=== PATIENT | female | born 1955 | race Caucasian/White ===

== ENCOUNTER 2020-08-12 16:27 | Inpatient (IN) ==
[2020-08-12] MEDS ORDERED: SODIUM CHLORIDE 0.9% 1000ML 2,000 ML IV ONE (16:44)
[2020-08-12] MEDS ORDERED: PANTOprazole 40 MG in SYRINGE 0 ML IV ONE (16:44)
--- NOTE | 2020-08-12 16:50 | Emergency Department Note ---
Impression & Plan Acute upper GI bleed, Lactic acidosis, Acute blood loss anemia, Hypotension, Syncope ED Provider Note NAME: DOMINGO JEFFREY AGE: 64 SEX: F ARRIVES VIA: Walk-In INFORMANT: Patient, ED PROVIDER(S): Pedro Dowling MD CHIEF COMPLAINT: Syncope PLAN: Disposition: Admit MEDICAL DECISION MAKING: The patient is a pleasant 64-year-old woman who presents emergency department coming by her with concern for recurrent syncopal episodes in the set ting of developing black diarrhea today with symptoms of abdominal pain. They deny any regular history of alcohol use, NSAID use, history of peptic ulcer or similar symptoms in the past. Otherwise she has been feeling healthy prior to today in the 90 fevers, chills, cough, congestion, urinary symptoms. Denies taking any blood thinners. She does report she takes 'natural' supplements but denies taking any iron. On arrival the patient is ill-appearing, tachycardic in the 120s and hypotensive 60s/50s, afebrile with normal O2 saturation. She appears clinically dry and pale. She has generalized abdominal discomfort without discrete tenderness. Rectal exam demonstrates gross melena/Hemoccult positive. Given suspicion for upper GI bleed and need for transfusion the patient was consented on arrival for blood transfusion to which she agreed if it would be required. EKG without overt acute ischemia. CXR negative for acute cardiopulmonary process. Chest x-ray negative for acute cardiopulmonary process or free air. The patient was treated with aggressive IV fluid hydration with 2 L normal saline with pressure bag and had tenuous blood pressures up until completion of initial resuscitation. WBC 18K, nonspecific and likely reactive given patient denies any infectious symptoms preceding her melena. H/H 9.5/28.5 without recent values for comparison however given the patient denies any known history of anemia suspect likely reflects acute drop in H/H given her hypotension and moderate pallor. INR within normal limits. Chemistry with bicarb of 19 and normal anion gap. However initial lactate was elevated at 4.2. BUN is elevated at 69 consistent with suspicion for upper GI bleed. LFTs are unremarkable. Troponin 0.019, within normal limits. Lipase is not elevated. UA without convincing evidence of infection. COVID-[address] Abdomen and pelvis performed and did not demonstrate acute process. Moreover no evidence of cirrhosis. Rectal exam did demonstrate gross melena/Hemoccult positive and so given concern for hypotension related to acute hemorrhage decision was made to transfuse 1 unit PRBC. I discussed the case with GI on-call for Dr. Gustafson who agrees with transfusion of 1 unit PRBCs as well as IV Protonix and drip. Additionally recommends IV erythromycin. Will monitor for hemodynamic stability and likely proceed with endoscopy tonight. Case was also reviewed with Dr. Adams, ICU park warden as well as Shannan Parisi PAC with Dr. [facility], who will evaluate the patient for admission. Triage Nursing notes reviewed and agree them. Prior medical records reviewed Vital Signs: reviewed and remarkable for hypotension and tachycardia. Differential diagnosis: Diverticulosis, AVM, coagulopathy, colitis, inflammatory bowel disease, malignancy, Joy-Reed tear, esophagitis, peptic ulcer disease, variceal bleed, gastritis, epistaxis, fissure, hemorrhoids, as well as other pathologies. ER treatment provided: See below. Diagnostics interpreted by me: ECG: Sinus tachycardia, 116 bpm, no ectopy, no overt ST elevation or depression, QTC 480, QRS 76. Cardiac Monitoring: An order for continuous cardiac monitoring was placed and demonstrated Sinus tachycardia, 116 bpm, no ectopy. Laboratory studies: See below Imaging studies: See below Consultation(s): Dr. Gustafson, GI on-call. Shannan Parisi PAC with Dr. [facility], who will evaluate the patient for admission. Dr. Adams ICU park warden. HPI: The patient is a pleasant 64-year-old woman who presents emergency department coming by her with concern for recurrent syncopal episodes in the setting of developing black diarrhea today with symptoms of abdominal pain. They deny any regular history of alcohol use, NSAID use, history of peptic ulcer or similar symptoms in the past. Otherwise she has been feeling healthy prior to today in the 90 fevers, chills, cough, congestion, urinary symptoms. ROS: See above HPI for pertinent positives & negatives. A total of 10 systems reviewed and were otherwise negative. PAST MEDICAL HISTORY:See Below PAST SURGICAL HISTORY:See Below FAMILY HISTORY:See Below SOCIAL HISTORY:See Below HOME MEDICATIONS:See Below ALLERGIES:See Below VITALS:See Below PHYSICAL EXAMINATION: GENERAL: Awake, alert, ill-appearing, in no distress HENT: Normocephalic, atraumatic. Oropharynx with dry mucous membranes and otherwise unremarkable. EYES: Normal conjunctiva. Sclera non-icteric. NECK: Supple. No nuchal rigidity. FROM. No JVD. RESPIRATORY: Clear to auscultation. CARDIAC: Tachycardic rate, normal rhythm. Extremities warm and well perfused. Pulses equal. ABDOMEN: Soft, non-distended. No tenderness to palpation. No rebound or guarding. No masses. RECTAL: Gross melena/Hemoccult positive. MUSCULOSKELETAL: Chest examination reveals no tenderness. The back is symmetrical on inspection without obvious abnormality. There is no CVA tenderness to palpation. No joint edema. LOWER EXTREMITIES: Calves are equal size bilaterally and non-tender. No edema. No discoloration. NEURO: Normal sensorium. No sensory or motor deficits noted. SKIN: Moderate pallor. No rash or jaundice noted. ED COURSE: Critical Care: I have personally spent greater than 115 minutes of critical care time in the direct management of this patient. This includes bedside care, interpretation of diagnostic studies, and testing, discussion with consultants, patient, and family members, and other required patient management activities. This 115 minutes is in excess of all separately billable procedures. Pedro Dowling MD Past Med/Surg History Medical History Anemia GI bleed Surgical History H/O: hysterectomy Social History Smoking Status: Former smoker Hx Alcohol Use: No Hx Substance Use: No Preferred Language: Lebanese Beliefs That Will Affect Care: None Current Living Situation: Spouse Other Information That Helps Us Care for You: No Feels Safe at Home: Yes Safety Concerns: Feels Safe At This Time Allergies Allergies Allergy/AdvReac Type Severity Reaction Status Date / Time Penicillins Allergy Intermediate Hives Verified 08/12/20 17:22 Home Meds Home Medications Medication Instructions Recorded Confirmed [id number] 1 tab PO Q6H PRN 08/12/20 08/12/20 [Excedrin Extra Strength] cholecalciferol (vitamin D3) 25 mcg PO DAILY 08/12/20 08/12/20 [Vitamin D3] multivitamin [Multiple Vitamins] 1 tab PO DAILY 08/12/20 08/12/20 Results & Data (ED) Vital Signs Vital Signs - 24 hr 08/12/20 16:29 08/12/20 16:39 08/12/20 16:41 Temperature 36.5 C Temperature Source Oral Pulse Rate 120 H 114 H 114 H Pulse Rate from SpO2 Sensor 114 H 114 H Pulse Rhythm Regular Pulse Strength Normal Respiratory Rate 20 14 14 Respiratory Effort / Characteristics Non-Labored Spontaneous Respiratory Depth Normal Respiratory Pattern Regular Blood Pressure 58/53 L 80/58 L Blood Pressure Mean 54 65 Blood Pressure Position Sitting Pulse Oximetry 100 96 96 Oxygen Delivery Method Room Air Sepsis Recent Fever Within 48 Hours No Sepsis New/Unexplained Change in Mental Status No Sepsis Action Taken by Nursing No Action Required 08/12/20 16:45 08/12/20 16:46 08/12/20 16:51 Temperature Temperature Source Pulse Rate 119 H 114 H 115 H Pulse Rate from SpO2 Sensor 119 H 114 H 114 H Pulse Rhythm Pulse Strength Respiratory Rate 16 18 20 Respiratory Effort / Characteristics Respiratory Depth Respiratory Pattern Blood Pressure 91/58 L 114/81 Blood Pressure Mean 69 92 Blood Pressure Position Pulse Oximetry 99 99 99 Oxygen Delivery Method Sepsis Recent Fever Within 48 Hours Sepsis New/Unexplained Change in Mental Status Sepsis Action Taken by Nursing 08/12/20 16:55 08/12/20 17:00 08/12/20 17:14 Temperature Temperature Source Pulse Rate 117 H 116 H 111 H Pulse Rate from SpO2 Sensor 118 H 116 H 113 H Pulse Rhythm Pulse Strength Respiratory Rate 19 14 16 Respiratory Effort / Characteristics Respiratory Depth Respiratory Pattern Blood Pressure 84/72 L 77/49 L Blood Pressure Mean 76 58 Blood Pressure Position Pulse Oximetry 100 100 90 Oxygen Delivery Method Room Air Sepsis Recent Fever Within 48 Hours Sepsis New/Unexplained Change in Mental Status Sepsis Action Taken by Nursing 08/12/20 17:15 08/12/20 17:17 08/12/20 17:20 Temperature Temperature Source Pulse Rate 110 H 108 H 108 H Pulse Rate from SpO2 Sensor 111 H 108 H 108 H Pulse Rhythm Pulse Strength Respiratory Rate 12 11 L 18 Respiratory Effort / Characteristics Respiratory Depth Respiratory Pattern Blood Pressure 76/43 L 90/59 L Blood Pressure Mean 54 69 Blood Pressure Position Pulse Oximetry 98 98 98 Oxygen Delivery Method Sepsis Recent Fever Within 48 Hours Sepsis New/Unexplained Change in Mental Status Sepsis Action Taken by Nursing 08/12/20 17:25 08/12/20 17:30 08/12/20 17:31 Temperature Temperature Source Pulse Rate 105 H 108 H 106 H Pulse Rate from SpO2 Sensor 106 H 107 H 106 H Pulse Rhythm Pulse Strength Respiratory Rate 12 14 16 Respiratory Effort / Characteristics Respiratory Depth Respiratory Pattern Blood Pressure 97/65 L 91/58 L Blood Pressure Mean 75 69 Blood Pressure Position Pulse Oximetry 99 99 100 Oxygen Delivery Method Sepsis Recent Fever Within 48 Hours Sepsis New/Unexplained Change in Mental Status Sepsis Action Taken by Nursing 08/12/20 17:32 08/12/20 17:58 08/12/20 18:00 Temperature Temperature Source Pulse Rate 108 H 112 H 115 H Pulse Rate from SpO2 Sensor 108 H 115 H Pulse Rhythm Pulse Strength Respiratory Rate 13 22 23 Respiratory Effort / Characteristics Respiratory Depth Respiratory Pattern Blood Pressure Blood Pressure Mean Blood Pressure Position Pulse Oximetry 99 95 Oxygen Delivery Method Sepsis Recent Fever Within 48 Hours Sepsis New/Unexplained Change in Mental Status Sepsis Action Taken by Nursing 08/12/20 18:03 08/12/20 18:06 08/12/20 18:09 Temperature 35.8 C L Temperature Source Rectal Pulse Rate 120 H 109 H Pulse Rate from SpO2 Sensor 112 H 109 H Pulse Rhythm Pulse Strength Respiratory Rate 16 15 Respiratory Effort / Characteristics Respiratory Depth Respiratory Pattern Blood Pressure 99/70 L 127/61 Blood Pressure Mean 79 83 Blood Pressure Position Pulse Oximetry 97 100 Oxygen Delivery Method Sepsis Recent Fever Within 48 Hours Sepsis New/Unexplained Change in Mental Status Sepsis Action Taken by Nursing 08/12/20 18:11 08/12/20 18:15 08/12/20 18:20 Temperature Temperature Source Pulse Rate 111 H 106 H 108 H Pulse Rate from SpO2 Sensor 113 H 108 H 108 H Pulse Rhythm Pulse Strength Respiratory Rate 20 15 17 Respiratory Effort / Characteristics Respiratory Depth Respiratory Pattern Blood Pressure 105/64 114/79 115/87 Blood Pressure Mean 77 90 96 Blood Pressure Position Pulse Oximetry 100 100 100 Oxygen Delivery Method Sepsis Recent Fever Within 48 Hours Sepsis New/Unexplained Change in Mental Status Sepsis Action Taken by Nursing 08/12/20 18:36 08/12/20 19:02 08/12/20 19:10 Temperature Temperature Source Pulse Rate 105 H 111 H 112 H Pulse Rate from SpO2 Sensor 106 H 110 H 112 H Pulse Rhythm Pulse Strength Respiratory Rate 26 H 17 19 Respiratory Effort / Characteristics Respiratory Depth Respiratory Pattern Blood Pressure 132/77 97/73 L 97/69 L Blood Pressure Mean 95 81 78 Blood Pressure Position Pulse Oximetry 99 98 99 Oxygen Delivery Method Room Air Room Air Sepsis Recent Fever Within 48 Hours Sepsis New/Unexplained Change in Mental Status Sepsis Action Taken by Nursing 08/12/20 19:20 08/12/20 19:30 08/12/20 19:40 Temperature Temperature Source Pulse Rate 113 H 111 H 116 H Pulse Rate from SpO2 Sensor 113 H 112 H 118 H Pulse Rhythm Pulse Strength Respiratory Rate 15 16 22 Respiratory Effort / Characteristics Respiratory Depth Respiratory Pattern Blood Pressure 89/67 L 116/70 107/70 Blood Pressure Mean 74 85 82 Blood Pressure Position Pulse Oximetry 99 98 97 Oxygen Delivery Method Room Air Room Air Room Air Sepsis Recent Fever Within 48 Hours Sepsis New/Unexplained Change in Mental Status Sepsis Action Taken by Nursing 08/12/20 19:53 Temperature Temperature Source Pulse Rate 121 H Pulse Rate from SpO2 Sensor 122 H Pulse Rhythm Pulse Strength Respiratory Rate 16 Respiratory Effort / Characteristics Respiratory Depth Respiratory Pattern Blood Pressure 100/62 Blood Pressure Mean 74 Blood Pressure Position Pulse Oximetry 98 Oxygen Delivery Method Room Air Sepsis Recent Fever Within 48 Hours Sepsis New/Unexplained Change in Mental Status Sepsis Action Taken by Nursing Laboratory Data Attestation: I reviewed the patient's lab results. Result diagrams: 08/12/20 22:04 08/12/20 16:48 Lab Results 08/12/20 08/12/20 08/12/20 Range/Units 16:48 16:48 16:48 WBC 18.21 H (4.8-10.8) K/uL RBC 3.06 L (4.2-5.4) M/uL Hgb 9.5 L (12.0-16.0) g/dL POC Hgb (12.0-16.0) g/dl Hct 28.5 L (37-47) % POC Hct (37-47) % MCV 93.1 (80-100) fL MCH 31.0 (25-34) pg MCHC 33.3 (32-36) g/dL RDW Std Deviation 46.3 (36.4-46.3) fL RDW Coeff of Mario 13.6 (11.5-14.5) % Plt Count 355 (130-400) K/uL MPV 11.0 H (7.4-10.4) fL Immature Gran % (Auto) 0.7 % Neut % (Auto) 84.8 % Lymph % (Auto) 11.2 % [place] % (Auto) 3.0 % Eos % (Auto) 0.1 % Baso % (Auto) 0.2 % Reticulocyte % (Auto) 1.8 (0.5-2.0) % Neut # (Auto) 15.44 H (1.4-6.5) K/uL Lymph # (Auto) 2.04 (1.2-3.4) K/uL [place] # (Auto) 0.55 (0.11-0.59) K/uL Eos # (Auto) 0.02 (0-0.5) K/uL Baso # (Auto) 0.04 (0-0.2) K/uL Reticulocyte # 0.05 (0.02-0.10) 10^6/uL Immature Gran # (Auto) 0.12 H (0.00-0.02) K/uL PT 10.3 (9.0-12.0) Seconds INR 1.0 (0.9-1.1) APTT < 20.0 L (21.0-31.0) Seconds PTT Ratio 0.8 POC Sodium (135-144) mmol/L Sodium (136-145) mmol/L POC Potassium (3.3-5.0) mmol/L Potassium (3.5-5.1) mmol/L POC Chloride (101-112) mmol/L Chloride (98-107) mmol/L Carbon Dioxide (21-32) mmol/L POC Total CO2 (24-31) mmol/L Anion Gap (3-11) POC Anion Gap (16-25) mmol/L POC BUN (7-18) mg/dl BUN (7-18) mg/dl Creatinine (0.6-1.2) mg/dl POC Creatinine (0.6-1.3) mg/dl Est Cr Clr Drug Dosing ml/min Est GFR ( Amer) ml/min Est GFR (Non-Af Amer) ml/min BUN/Creatinine Ratio (10-20) Glucose (70-99) mg/dl POC Glucose (other) (70-99) mg/dl Lactate (0.4-2.0) mmol/L Calcium (8.5-10.1) mg/dl POC Ioniz Calcium Sunitha (1.12-1.32) mmol/l Phosphorus (2.5-4.9) mg/dl Magnesium (1.8-2.4) mg/dl Iron (35-150) mcg/dl TIBC (250-450) mcg/dl Transferrin (200-360) mg/dl Ferritin (8-388) ng/ml Total Bilirubin (0.2-1) mg/dl Direct Bilirubin (0-0.2) mg/dl AST (15-37) U/L ALT (12-78) U/L Alkaline Phosphatase (45-117) U/L Total Creatine Kinase (26-192) U/L Troponin I (0-0.045) ng/ml Total Protein (6.4-8.2) gm/dl Albumin (3.4-5.0) gm/dl Globulin (2.5-4.0) gm/dl Albumin/Globulin Ratio (0.9-2) Lipase (73-393) U/L Procalcitonin (0-0.5) ng/ml TSH (0.300-4.500) uIu/ml Urine Color Urine Appearance (Clear) Urine pH (4.5-7.5) Ur Specific [place] (1.000-1.030) Urine Protein (Negative) Urine Glucose (UA) (Negative) Urine Ketones (Negative) Urine Blood (Negative) Urine Nitrite (Negative) Urine Bilirubin (Negative) Urine Urobilinogen (Negative) Ur Leukocyte Esterase (Negative) COVID-19 Eval Order SARS-CoV-2 (PCR) (Negative) Blood Type O Positive Blood Type Recheck Antibody Screen NEGATIVE Crossmatch See Detail 08/12/20 08/12/20 08/12/20 Range/Units 16:48 16:50 16:50 WBC (4.8-10.8) K/uL RBC (4.2-5.4) M/uL Hgb (12.0-16.0) g/dL POC Hgb (12.0-16.0) g/dl Hct (37-47) % POC Hct (37-47) % MCV (80-100) fL MCH (25-34) pg MCHC (32-36) g/dL RDW Std Deviation (36.4-46.3) fL RDW Coeff of Mario (11.5-14.5) % Plt Count (130-400) K/uL MPV (7.4-10.4) fL Immature Gran % (Auto) % Neut % (Auto) % Lymph % (Auto) % [place] % (Auto) % Eos % (Auto) % Baso % (Auto) % Reticulocyte % (Auto) (0.5-2.0) % Neut # (Auto) (1.4-6.5) K/uL Lymph # (Auto) (1.2-3.4) K/uL [place] # (Auto) (0.11-0.59) K/uL Eos # (Auto) (0-0.5) K/uL Baso # (Auto) (0-0.2) K/uL Reticulocyte # (0.02-0.10) 10^6/uL Immature Gran # (Auto) (0.00-0.02) K/uL PT (9.0-12.0) Seconds INR (0.9-1.1) APTT (21.0-31.0) Seconds PTT Ratio POC Sodium (135-144) mmol/L Sodium 138 (136-145) mmol/L POC Potassium (3.3-5.0) mmol/L Potassium 4.6 (3.5-5.1) mmol/L POC Chloride (101-112) mmol/L Chloride 109 H (98-107) mmol/L Carbon Dioxide 19 L (21-32) mmol/L POC Total CO2 (24-31) mmol/L Anion Gap 10.0 (3-11) POC Anion Gap (16-25) mmol/L POC BUN (7-18) mg/dl BUN 69 H (7-18) mg/dl Creatinine 0.79 (0.6-1.2) mg/dl POC Creatinine (0.6-1.3) mg/dl Est Cr Clr Drug Dosing 72.8 ml/min Est GFR ( Amer) 90.4 ml/min Est GFR (Non-Af Amer) 78.0 ml/min BUN/Creatinine Ratio 87.1 H (10-20) Glucose 250 H (70-99) mg/dl POC Glucose (other) (70-99) mg/dl Lactate 4.2 H* (0.4-2.0) mmol/L Calcium 8.3 L (8.5-10.1) mg/dl POC Ioniz Calcium Sunitha (1.12-1.32) mmol/l Phosphorus 2.7 (2.5-4.9) mg/dl Magnesium 2.2 (1.8-2.4) mg/dl Iron 281 H (35-150) mcg/dl TIBC 318 (250-450) mcg/dl Transferrin 232 (200-360) mg/dl Ferritin 47.3 (8-388) ng/ml Total Bilirubin 0.5 (0.2-1) mg/dl Direct Bilirubin 0.1 (0-0.2) mg/dl AST 18 (15-37) U/L ALT 27 (12-78) U/L Alkaline Phosphatase 45 (45-117) U/L Total Creatine Kinase 88 (26-192) U/L Troponin I 0.019 (0-0.045) ng/ml Total Protein 5.9 L (6.4-8.2) gm/dl Albumin 3.0 L (3.4-5.0) gm/dl Globulin 2.9 (2.5-4.0) gm/dl Albumin/Globulin Ratio 1.0 (0.9-2) Lipase 138 (73-393) U/L Procalcitonin 0.15 (0-0.5) ng/ml TSH 1.570 (0.300-4.500) uIu/ml Urine Color Urine Appearance (Clear) Urine pH (4.5-7.5) Ur Specific [place] (1.000-1.030) Urine Protein (Negative) Urine Glucose (UA) (Negative) Urine Ketones (Negative) Urine Blood (Negative) Urine Nitrite (Negative) Urine Bilirubin (Negative) Urine Urobilinogen (Negative) Ur Leukocyte Esterase (Negative) COVID-19 Eval Order SARS-CoV-2 (PCR) (Negative) Blood Type Blood Type Recheck Antibody Screen Crossmatch 08/12/20 08/12/20 08/12/20 Range/Units 16:53 17:12 17:25 WBC (4.8-10.8) K/uL RBC (4.2-5.4) M/uL Hgb (12.0-16.0) g/dL POC Hgb 8.5 L (12.0-16.0) g/dl Hct (37-47) % POC Hct 25 L (37-47) % MCV (80-100) fL MCH (25-34) pg MCHC (32-36) g/dL RDW Std Deviation (36.4-46.3) fL RDW Coeff of Mario (11.5-14.5) % Plt Count (130-400) K/uL MPV (7.4-10.4) fL Immature Gran % (Auto) % Neut % (Auto) % Lymph % (Auto) % [place] % (Auto) % Eos % (Auto) % Baso % (Auto) % Reticulocyte % (Auto) (0.5-2.0) % Neut # (Auto) (1.4-6.5) K/uL Lymph # (Auto) (1.2-3.4) K/uL [place] # (Auto) (0.11-0.59) K/uL Eos # (Auto) (0-0.5) K/uL Baso # (Auto) (0-0.2) K/uL Reticulocyte # (0.02-0.10) 10^6/uL Immature Gran # (Auto) (0.00-0.02) K/uL PT (9.0-12.0) Seconds INR (0.9-1.1) APTT (21.0-31.0) Seconds PTT Ratio POC Sodium 137 (135-144) mmol/L Sodium (136-145) mmol/L POC Potassium 4.6 (3.3-5.0) mmol/L Potassium (3.5-5.1) mmol/L POC Chloride 106 (101-112) mmol/L Chloride (98-107) mmol/L Carbon Dioxide (21-32) mmol/L POC Total CO2 17 L (24-31) mmol/L Anion Gap (3-11) POC Anion Gap 20.0 (16-25) mmol/L POC BUN 73 H (7-18) mg/dl BUN (7-18) mg/dl Creatinine (0.6-1.2) mg/dl POC Creatinine 0.9 (0.6-1.3) mg/dl Est Cr Clr Drug Dosing ml/min Est GFR ( Amer) ml/min Est GFR (Non-Af Amer) ml/min BUN/Creatinine Ratio (10-20) Glucose (70-99) mg/dl POC Glucose (other) 232 H (70-99) mg/dl Lactate (0.4-2.0) mmol/L Calcium (8.5-10.1) mg/dl POC Ioniz Calcium Sunitha 1.16 (1.12-1.32) mmol/l Phosphorus (2.5-4.9) mg/dl Magnesium (1.8-2.4) mg/dl Iron (35-150) mcg/dl TIBC (250-450) mcg/dl Transferrin (200-360) mg/dl Ferritin (8-388) ng/ml Total Bilirubin (0.2-1) mg/dl Direct Bilirubin (0-0.2) mg/dl AST (15-37) U/L ALT (12-78) U/L Alkaline Phosphatase (45-117) U/L Total Creatine Kinase (26-192) U/L Troponin I (0-0.045) ng/ml Total Protein (6.4-8.2) gm/dl Albumin (3.4-5.0) gm/dl Globulin (2.5-4.0) gm/dl Albumin/Globulin Ratio (0.9-2) Lipase (73-393) U/L Procalcitonin (0-0.5) ng/ml TSH (0.300-4.500) uIu/ml Urine Color Yellow Urine Appearance Clear (Clear) Urine pH 5.5 (4.5-7.5) Ur Specific [place] 1.024 (1.000-1.030) Urine Protein Negative (Negative) Urine Glucose (UA) Negative (Negative) Urine Ketones 1+ H (Negative) Urine Blood Negative (Negative) Urine Nitrite Negative (Negative) Urine Bilirubin Negative (Negative) Urine Urobilinogen Negative (Negative) Ur Leukocyte Esterase Negative (Negative) COVID-19 Eval Order Covid19 at [facility] SARS-CoV-2 (PCR) (Negative) Blood Type Blood Type Recheck Antibody Screen Crossmatch 08/12/20 08/12/20 08/12/20 Range/Units 17:25 19:06 19:27 WBC (4.8-10.8) K/uL RBC (4.2-5.4) M/uL Hgb (12.0-16.0) g/dL POC Hgb (12.0-16.0) g/dl Hct (37-47) % POC Hct (37-47) % MCV (80-100) fL MCH (25-34) pg MCHC (32-36) g/dL RDW Std Deviation (36.4-46.3) fL RDW Coeff of Mario (11.5-14.5) % Plt Count (130-400) K/uL MPV (7.4-10.4) fL Immature Gran % (Auto) % Neut % (Auto) % Lymph % (Auto) % [place] % (Auto) % Eos % (Auto) % Baso % (Auto) % Reticulocyte % (Auto) (0.5-2.0) % Neut # (Auto) (1.4-6.5) K/uL Lymph # (Auto) (1.2-3.4) K/uL [place] # (Auto) (0.11-0.59) K/uL Eos # (Auto) (0-0.5) K/uL Baso # (Auto) (0-0.2) K/uL Reticulocyte # (0.02-0.10) 10^6/uL Immature Gran # (Auto) (0.00-0.02) K/uL PT (9.0-12.0) Seconds INR (0.9-1.1) APTT (21.0-31.0) Seconds PTT Ratio POC Sodium (135-144) mmol/L Sodium (136-145) mmol/L POC Potassium (3.3-5.0) mmol/L Potassium (3.5-5.1) mmol/L POC Chloride (101-112) mmol/L Chloride (98-107) mmol/L Carbon Dioxide (21-32) mmol/L POC Total CO2 (24-31) mmol/L Anion Gap (3-11) POC Anion Gap (16-25) mmol/L POC BUN (7-18) mg/dl BUN (7-18) mg/dl Creatinine (0.6-1.2) mg/dl POC Creatinine (0.6-1.3) mg/dl Est Cr Clr Drug Dosing ml/min Est GFR ( Amer) ml/min Est GFR (Non-Af Amer) ml/min BUN/Creatinine Ratio (10-20) Glucose (70-99) mg/dl POC Glucose (other) (70-99) mg/dl Lactate 2.5 H* (0.4-2.0) mmol/L Calcium (8.5-10.1) mg/dl POC Ioniz Calcium Sunitha (1.12-1.32) mmol/l Phosphorus (2.5-4.9) mg/dl Magnesium (1.8-2.4) mg/dl Iron (35-150) mcg/dl TIBC (250-450) mcg/dl Transferrin (200-360) mg/dl Ferritin (8-388) ng/ml Total Bilirubin (0.2-1) mg/dl Direct Bilirubin (0-0.2) mg/dl AST (15-37) U/L ALT (12-78) U/L Alkaline Phosphatase (45-117) U/L Total Creatine Kinase (26-192) U/L Troponin I (0-0.045) ng/ml Total Protein (6.4-8.2) gm/dl Albumin (3.4-5.0) gm/dl Globulin (2.5-4.0) gm/dl Albumin/Globulin Ratio (0.9-2) Lipase (73-393) U/L Procalcitonin (0-0.5) ng/ml TSH (0.300-4.500) uIu/ml Urine Color Urine Appearance (Clear) Urine pH (4.5-7.5) Ur Specific [place] (1.000-1.030) Urine Protein (Negative) Urine Glucose (UA) (Negative) Urine Ketones (Negative) Urine Blood (Negative) Urine Nitrite (Negative) Urine Bilirubin (Negative) Urine Urobilinogen (Negative) Ur Leukocyte Esterase (Negative) COVID-19 Eval Order SARS-CoV-2 (PCR) NEGATIVE (Negative) Blood Type Blood Type Recheck O Positive Antibody Screen Crossmatch Administered Medications Pantoprazole Sodium 40 mg/ (Dextrose) 100 mls @ 20 mls/hr IV Q5H [facility] Stop: 09/11/20 18:14 Last Admin: 08/12/20 18:44 Dose: 8 mg/hr, 20 mls/hr Documented by: [id number] Lactated Ringer's (Lr) 1,000 mls @ 150 mls/hr IV .Q6H40M [facility] Stop: 09/11/20 21:05 Last Admin: 08/12/20 21:37 Dose: 150 mls/hr Documented by: [id number] Ciprofloxacin (Cipro / D5w) 400 mg in 200 mls @ 100 mls/hr IV Q12 [facility]; Protocol Stop: 08/22/20 21:59 Last Admin: 08/12/20 22:18 Dose: 100 mls/hr Documented by: [id number] Discontinued Medications Epinephrine HCl (Epinephrine 1.5" Ndl 0.1 Mg/Ml Syr) Confirm Administered Dose 1 mg IV .STK-MED ONE Stop: 08/12/20 21:09 Last Admin: 08/12/20 21:40 Dose: Not Given Documented by: [id number] Sodium Chloride (Nss 1000ml) 2,000 mls @ 999 mls/hr IV .Q2H1M ONE Stop: 08/12/20 18:44 Last Infusion: 08/12/20 19:32 Dose: 0 mls/hr Documented by: [id number] Admin: 08/12/20 17:25 Dose: 999 mls/hr Documented by: [id number] Pantoprazole Sodium 40 mg/ (Syringe) 10 mls @ 5 mls/min IV NOW ONE Stop: 08/12/20 16:45 Last Admin: 08/12/20 18:07 Dose: 5 mls/min Documented by: [id number] Lactated Ringer's (Lr) 1,000 mls @ 999 mls/hr IV .Q1H1M ONE Stop: 08/12/20 18:53 Last Infusion: 08/12/20 21:44 Dose: 0 mls/hr Documented by: [id number] Admin: 08/12/20 19:25 Dose: 999 mls/hr Documented by: [id number] Erythromycin Lactobionate 1, (000 mg/ Sodium Chloride) 270 mls @ 250 mls/hr IV NOW STA Stop: 08/12/20 19:38 Last Infusion: 08/12/20 21:41 Dose: 0 mls/hr Documented by: [id number] Admin: 08/12/20 19:25 Dose: 250 mls/hr Documented by: [id number] Lactated Ringer's (Lr) 1,000 mls @ 500 mls/hr IV .Q2H ONE Stop: 08/12/20 21:25 Last Admin: 08/12/20 21:37 Dose: Not Given Documented by: [id number] Ioversol (Optiray 320 100ml) 94 ml IV ONCE ONE Stop: 08/12/20 17:33 Last Admin: 08/12/20 17:32 Dose: 1 ml Documented by: [id number] Imaging Data Radiologist's Impression: Chest X-Ray 08/12/20 16:44 XR chest 1V portable CLINICAL HISTORY: Chest Pain COMPARISON STUDY: No previous studies for comparison. FINDINGS: Lung volumes are normal. Lungs are clear. There is no pneumothorax or pleural effusion. Cardiac size is normal. Mediastinal contours are normal. There is no evidence for pulmonary edema. IMPRESSION: No acute cardiopulmonary findings. ACT 112: Negative or not required by law. Electronically signed by: Kendell Mello M.D. 08/12/2020 5:04 PM Abdomen/Pelvis CT 08/12/20 16:46 CT abd pelvis IV con only CLINICAL HISTORY: hypotension, syncope, melena COMPARISON STUDY: None. TECHNIQUE: A dose lowering technique was utilized adhering to the principles of ALARA. CT DOSE: 466.81 mGy.cm FINDINGS: Lower chest: Limited evaluation of lung bases shows no evidence of acute abnormalities.. Liver: The contrast-enhanced liver is normal in size, contour, and attenuation. There is no intrahepatic biliary ductal dilatation. The hepatic veins and portal veins are patent. Gallbladder: Unremarkable. Spleen: Normal in size and attenuation. Pancreas: Unremarkable. Adrenal glands: Unremarkable. Kidneys: There is symmetric renal cortical enhancement. The kidneys are normal in size without hydronephrosis. Pelvic viscera: Urinary bladder is decompressed which limits evaluation. Possible urinary catheter is seen. No uterus seen, possibly surgically absent. Bowel: Small hiatal hernia is seen. Stomach is filled with ingested material. Loops of bowel are nondilated. Appendix is not well seen. Minimal diverticulosis of sigmoid colon without evidence of diverticulitis. Peritoneum: There is no intraperitoneal free air or abdominal ascites. Adenopathy:: Multiple retroperitoneal and mesenteric lymph nodes are seen, measuring less than 1 cm in short axis and considered nonpathological by CT size criteria. Vasculature: Nondilated abdominal aorta is seen. Skeletal structures: Multilevel degenerative changes of the spine. Also degenerative changes of the right sacroiliac joint and pubis symphysis are seen. Linear density within anterior inferior sacral aspect of the right sacroiliac joint shows linear lucency which might represent fracture. IMPRESSION: 1. Nondilated loops of bowel. No significant inflammatory changes within the abdomen pelvis. Minimal diverticulosis of sigmoid colon without evidence of diverticulitis 2. Inflammatory changes surrounding the right sacroiliac joint with possible fracture detailed above. 3. Small hiatal hernia. 4. Other findings as detailed above. ACT 112: Positive. There are findings on this exam that require communication between the performing entity and the patient following Patient Test Result [place] Act [place] Act 112) guidelines. The above report was generated using voice recognition software. It may contain grammatical, syntax or spelling errors. Electronically signed by: Abigail Mosqueda DO 08/12/2020 6:11 PM Discharge Plan Visit Data Chief Complaint: Syncope Stated Complaint: CHILLS,SHAKES,DIARRHEA,PASSED OUT ED Provider: Pedro Dowling Discharge Problem: Acute upper GI bleed, Lactic acidosis, Acute blood loss anemia, Hypotension, Syncope Patient Disposition: Admitted As Inpatient Discharge Instructions Interventions: ED Discharge Assessment Last Done: 08/12/20 19:58 Discharge Problem: Hypotension Qualifiers: Hypotension type: hypotension due to hypovolemia Qualified Code(s): I95.89 - Other hypotension Syncope Qualifiers: Syncope type: unspecified Qualified Code(s): R55 - Syncope and collapse
[2020-08-12 17:01] LABS: Hematocrit (blood only) 28.5 % (37-47); Hemoglobin 9.5 g/dL (12.0-16.0); Mean Corpuscular Hgb Conc 33.3 g/dL (32-36); Mean Corpuscular Volume 93.1 fL (80-100); Platelet Count 355 K/uL (130-400); RDW Coefficient of Variation 13.6 % (11.5-14.5); RDW Standard Deviation 46.3 fL (36.4-46.3); Red Blood Count 3.06 M/uL (4.2-5.4); White Blood Count 18.21 K/uL (4.8-10.8)
--- NOTE | 2020-08-12 17:05 | XRay Report ---
XR chest 1V portable CLINICAL HISTORY: Chest Pain COMPARISON STUDY: No previous studies for comparison. FINDINGS: Lung volumes are normal. Lungs are clear. There is no pneumothorax or pleural effusion. Car diac size is normal. Mediastinal contours are normal. There is no evidence for pulmonary edema. IMPRESSION: No acute cardiopulmonary findings. ACT 112: Negative or not required by law. Electronically signed by: Kendell Mello M.D. 08/12/2020 5:04 PM
[2020-08-12 17:10] LABS: iSTAT Creatinine 0.9 mg/dl (0.6-1.3); iSTAT Hemoglobin 8.5 g/dl (12.0-16.0); iSTAT Ionized Calcium 1.16 mmol/l (1.12-1.32); iSTAT Potassium 4.6 mmol/L (3.3-5.0)
[2020-08-12 17:14] LABS: Partial Thromboplastin Ratio 0.8; Prothrombin Time 10.3 Seconds (9.0-12.0)
[2020-08-12 17:20] LABS: BUN Creatinine Ratio 87.1 (10-20); Bilirubin Direct 0.1 mg/dl (0-0.2); Calcium 8.3 mg/dl (8.5-10.1); Creatinine Clr Calc Pharmacy 72.8 ml/min; Est GFR (African American) 90.4 ml/min; Magnesium 2.2 mg/dl (1.8-2.4); Potassium 4.6 mmol/L (3.5-5.1)
[2020-08-12 17:22] LABS: Basophils # (auto) 0.04 K/uL (0-0.2); Basophils % (auto) 0.2 %; Eosinophils # (auto) 0.02 K/uL (0-0.5); Eosinophils % (auto) 0.1 %; Immature Granulocytes # (auto) 0.12 K/uL (0.00-0.02); Immature Granulocytes % (auto) 0.7 %; Lymphocytes # (auto) 2.04 K/uL (1.2-3.4); Lymphocytes % (auto) 11.2 %; Monocytes # (auto) 0.55 K/uL (0.11-0.59); Neutrophils # (auto) 15.44 K/uL (1.4-6.5); Neutrophils % (auto) 84.8 %
[2020-08-12 17:24] LABS: Bilirubin,Total 0.5 mg/dl (0.2-1); Globulin 2.9 gm/dl (2.5-4.0); Phosphorus 2.7 mg/dl (2.5-4.9); Total Protein 5.9 gm/dl (6.4-8.2); Troponin I 0.019 ng/ml (0-0.045)
[2020-08-12 17:30] LABS: Appearance Urine Clear (Clear); Bilirubin Urine Negative (Negative); Blood Urine Negative (Negative); Color Urine Yellow; Glucose Urine UA Negative (Negative); Ketones Urine 1+ (Negative); Leukocyte Esterase Urine Negative (Negative); Nitrite Urine Negative (Negative); Protein Urine Negative (Negative); Specific Gravity Urine 1.024 (1.000-1.030); Urobilinogen Urine Negative (Negative); pH Urine 5.5 (4.5-7.5)
[2020-08-12 17:31] LABS: Partial Thromboplastin Time < 20.0 Seconds (21.0-31.0)
[2020-08-12] MEDS ORDERED: OPTIRAY 320 100ml IV ONE (17:32)
[2020-08-12] MEDS ORDERED: LACTATED RINGER'S 1,000 ML IV ONE ×2 (17:53→19:26)
[2020-08-12] MEDS ORDERED: SODIUM CHLORIDE 0.9% 250 ML IV PRN ×2 (17:54→18:04)
--- NOTE | 2020-08-12 18:13 | CT Scan Report ---
CT abd pelvis IV con only CLINICAL HISTORY: hypotension, syncope, melena COMPARISON STUDY: None. TECHNIQUE: A dose lowering technique was utilized adhering to the principles of ALARA. CT DOSE: 466.81 mGy.cm FINDINGS: Lower chest: Limited evaluation of lung bases shows no evidence of acute abnormalities.. Liver: The contrast-enhanced liver is normal in size, contour, and attenuation. There is no intrahepa tic biliary ductal dilatation. The hepatic veins and portal veins are patent. Gallbladder: Unremarkable. Spleen: Normal in size and attenuation. Pancreas: Unremarkable. Adrenal glands: Unremarkable. Kidneys: There is symmetric renal cortical enhancement. The kidneys are normal in size without hydron ephrosis. Pelvic viscera: Urinary bladder is decompressed which limits evaluation. Possible urinary catheter is seen. No uterus seen, possibly surgically absent. Bowel: Small hiatal hernia is seen. Stomach is filled with ingested material. Loops of bowel are nond ilated. Appendix is not well seen. Minimal diverticulosis of sigmoid colon without evidence of divert iculitis. Peritoneum: There is no intraperitoneal free air or abdominal ascites. Adenopathy:: Multiple retroperitoneal and mesenteric lymph nodes are seen, measuring less than 1 cm i n short axis and considered nonpathological by CT size criteria. Vasculature: Nondilated abdominal aorta is seen. Skeletal structures: Multilevel degenerative changes of the spine. Also degenerative changes of the r ight sacroiliac joint and pubis symphysis are seen. Linear density within anterior inferior sacral aspect of the right sacroiliac joint shows linear luce ncy which might represent fracture. IMPRESSION: 1. Nondilated loops of bowel. No significant inflammatory changes within the abdomen pelvis. Minimal diverticulosis of sigmoid colon without evidence of diverticulitis 2. Inflammatory changes surrounding the right sacroiliac joint with possible fracture detailed above . 3. Small hiatal hernia. 4. Other findings as detailed above. ACT 112: Positive. There are findings on this exam that require communication between the performing entity and the patient following Patient Test Result [place] Act [place] Act 112) guidelines. The above report was generated using voice recognition software. It may contain grammatical, syntax o r spelling errors. Electronically signed by: Abigail Mosqueda DO 08/12/2020 6:11 PM
[2020-08-12] MEDS ORDERED: SODIUM CHLORIDE 0.9% IV STA (18:34)
[2020-08-12] MEDS ORDERED: ERYTHROMYCIN IV STA (18:34)
[2020-08-12 18:36] LABS: Reticulocyte % 1.8 % (0.5-2.0); Reticulocytes # 0.05 10^6/uL (0.02-0.10)
[2020-08-12] MEDS: PANTOprazole 40 MG in DEXTROSE 5% 100 ML IV SCH ×2 (18:44→23:07)
[2020-08-12 18:46] LABS: Ferritin 47.3 ng/ml (8-388)
--- NOTE | 2020-08-12 19:45 | History & Physical Report ---
Date of Service August 12, 2020 Assessment & Plan (1) Hypotension: Secondary to UGI B Possible NSAID gastritis given regular Excedrin intake Hyperglycemia rule out DM Past tobacco abuse ICU monitoring given hemodynamic instability IV PPI GI consult Re: UGI B (ER provider already in touch with Dr. Gustafson. Emergent endoscopy contemplated tonight.) IVF, follow lactic acid Serial H&H, transfuse PRBC if hemoglobin less than 7 and or for symptomatic anemia Check hemoglobin A1c DVT prophylaxis. SCDs Re: GI bleed Full code Text document was generated using [employer] voice recognition software. It may contain grammatical or spelling errors. Kindly contact undersigned for clarification of any documentation item in question. History of Present Illness Chief Complaint: Recurrent syncope, abdominal pain, dark stools Primary Care Provider: Dr. Hill History obtained from patient and records. Medical history significant for diverticulosis, colonic polyps, osteoarthritis, past tobacco abuse. Patient woke up this morning not feeling well. Recurrent syncopal episodes without headache. Melanotic diarrhea symptoms with achy central abdominal pain. No emesis. No fever, no chills. No prior episodes. No unusual weight loss. Daily Excedrin intake for joint aches. Patient brought to the ER for evaluation. SBP 60s upon arrival at the ER. IV PPI administered for UGI B. 1 unit packed RBC ordered by ER provider for transfusion. Medical History as above 2015 colonoscopy showed hyperplastic polyps, diverticulosis Surgical History : Cervical cryocautery, knee surgery, oophorectomy/salpingectomy for ectopic , hysterectomy Family History : Lymphoma, lung cancer, DM, heart disease; no GI cancer Personal/Social history : Past tobacco abuse, no EtOH intake, dental hygienist Allergies Allergy/AdvReac Type Severity Reaction Status Date / Time Penicillins Allergy Intermediate Hives Verified 08/12/20 17:22 Home Medications Medication Instructions Recorded Confirmed Type [id number] 1 tab PO Q6H PRN 08/12/20 08/12/20 History [Excedrin Extra Strength] cholecalciferol (vitamin D3) 25 mcg PO DAILY 08/12/20 08/12/20 History [Vitamin D3] multivitamin [Multiple Vitamins] 1 tab PO DAILY 08/12/20 08/12/20 History Past Med/Surg History Medical History Anemia GI bleed Surgical History H/O: hysterectomy Social History Smoking Status: Former smoker Hx Alcohol Use: No Hx Substance Use: No Preferred Language: German Beliefs That Will Affect Care: None Current Living Situation: Spouse Other Information That Helps Us Care for You: No Feels Safe at Home: Yes Safety Concerns: Feels Safe At This Time Review of Systems Review of Systems: As per HPI, all 10 systems reviewed, all other ROS negative Physical Exam Physical Exam: GENERAL: Comfortable, pleasant, obese, slightly anxious, no respiratory distress SKIN: Pallor, warm HEENT: Pale palpebral conjunctivae, no ptosis, dry buccal mucosa NECK : Supple, short neck, no tenderness CHEST : CTA, no tenderness HEART : Tachycardic, no obvious murmurs ABDOMEN: Some distention, central abdominal tenderness EXTREMITIES : Minimal LE swelling, no LE tenderness, no other conspicuous deformities noted NEUROLOGIC : Coherent, no facial asymmetry, no other gross focality Results & Data Results & Data ([facility]) Vital Signs (Past 12 Hours) Vital Signs Temp Pulse Resp BP Pulse Ox 08/12/20 19:30 111 H 16 116/70 98 08/12/20 19:20 113 H 15 89/67 L 99 08/12/20 19:10 112 H 19 97/69 L 99 08/12/20 19:02 111 H 17 97/73 L 98 08/12/20 18:36 105 H 26 H 132/77 99 08/12/20 18:20 108 H 17 115/87 100 08/12/20 18:15 106 H 15 114/79 100 08/12/20 18:11 111 H 20 105/64 100 08/12/20 18:09 35.8 C L 08/12/20 18:06 109 H 15 127/61 100 08/12/20 18:03 120 H 16 99/70 L 97 08/12/20 18:00 115 H 23 95 08/12/20 17:58 112 H 22 08/12/20 17:32 108 H 13 99 08/12/20 17:31 106 H 16 91/58 L 100 08/12/20 17:30 108 H 14 99 08/12/20 17:25 105 H 12 97/65 L 99 08/12/20 17:20 108 H 18 90/59 L 98 08/12/20 17:17 108 H 11 L 98 08/12/20 17:15 110 H 12 76/43 L 98 08/12/20 17:14 111 H 16 77/49 L 90 08/12/20 17:00 116 H 14 100 08/12/20 16:55 117 H 19 84/72 L 100 08/12/20 16:51 115 H 20 114/81 99 08/12/20 16:46 114 H 18 91/58 L 99 08/12/20 16:45 119 H 16 99 08/12/20 16:41 114 H 14 96 08/12/20 16:39 114 H 14 80/58 L 96 08/12/20 16:29 36.5 C 120 H 20 58/53 L 100 Laboratory Results Laboratory Results WBC 18.21 K/uL (4.8-10.8) H 08/12/20 16:48 RBC 3.06 M/uL (4.2-5.4) L 08/12/20 16:48 Hgb 9.5 g/dL (12.0-16.0) L 08/12/20 16:48 POC Hgb 8.5 g/dl (12.0-16.0) L 08/12/20 16:53 Hct 28.5 % (37-47) L 08/12/20 16:48 POC Hct 25 % (37-47) L 08/12/20 16:53 MCV 93.1 fL (80-100) 08/12/20 16:48 MCH 31.0 pg (25-34) 08/12/20 16:48 MCHC 33.3 g/dL (32-36) 08/12/20 16:48 RDW Std Deviation 46.3 fL (36.4-46.3) 08/12/20 16:48 RDW Coeff of Mario 13.6 % (11.5-14.5) 08/12/20 16:48 Plt Count 355 K/uL (130-400) 08/12/20 16:48 MPV 11.0 fL (7.4-10.4) H 08/12/20 16:48 Immature Gran % (Auto) 0.7 % 08/12/20 16:48 Neut % (Auto) 84.8 % 08/12/20 16:48 Lymph % (Auto) 11.2 % 08/12/20 16:48 [place] % (Auto) 3.0 % 08/12/20 16:48 Eos % (Auto) 0.1 % 08/12/20 16:48 Baso % (Auto) 0.2 % 08/12/20 16:48 Reticulocyte % (Auto) 1.8 % (0.5-2.0) 08/12/20 16:48 Neut # (Auto) 15.44 K/uL (1.4-6.5) H 08/12/20 16:48 Lymph # (Auto) 2.04 K/uL (1.2-3.4) 08/12/20 16:48 [place] # (Auto) 0.55 K/uL (0.11-0.59) 08/12/20 16:48 Eos # (Auto) 0.02 K/uL (0-0.5) 08/12/20 16:48 Baso # (Auto) 0.04 K/uL (0-0.2) 08/12/20 16:48 Reticulocyte # 0.05 10^6/uL (0.02-0.10) 08/12/20 16:48 Immature Gran # (Auto) 0.12 K/uL (0.00-0.02) H 08/12/20 16:48 PT 10.3 Seconds (9.0-12.0) 08/12/20 16:48 INR 1.0 (0.9-1.1) 08/12/20 16:48 APTT < 20.0 Seconds (21.0-31.0) L 08/12/20 16:48 PTT Ratio 0.8 08/12/20 16:48 POC Sodium 137 mmol/L (135-144) 08/12/20 16:53 Sodium 138 mmol/L (136-145) 08/12/20 16:48 POC Potassium 4.6 mmol/L (3.3-5.0) 08/12/20 16:53 Potassium 4.6 mmol/L (3.5-5.1) 08/12/20 16:48 POC Chloride 106 mmol/L (101-112) 08/12/20 16:53 Chloride 109 mmol/L (98-107) H 08/12/20 16:48 Carbon Dioxide 19 mmol/L (21-32) L 08/12/20 16:48 POC Total CO2 17 mmol/L (24-31) L 08/12/20 16:53 Anion Gap 10.0 (3-11) 08/12/20 16:48 POC Anion Gap 20.0 mmol/L (16-25) 08/12/20 16:53 POC BUN 73 mg/dl (7-18) H 08/12/20 16:53 BUN 69 mg/dl (7-18) H 08/12/20 16:48 Creatinine 0.79 mg/dl (0.6-1.2) 08/12/20 16:48 POC Creatinine 0.9 mg/dl (0.6-1.3) 08/12/20 16:53 Est Cr Clr Drug Dosing 72.8 ml/min 08/12/20 16:48 Est GFR ( Amer) 90.4 ml/min 08/12/20 16:48 Est GFR (Non-Af Amer) 78.0 ml/min 08/12/20 16:48 BUN/Creatinine Ratio 87.1 (10-20) H 08/12/20 16:48 Glucose 250 mg/dl (70-99) H 08/12/20 16:48 POC Glucose (other) 232 mg/dl (70-99) H 08/12/20 16:53 Lactate 4.2 mmol/L (0.4-2.0) H* 08/12/20 16:50 Calcium 8.3 mg/dl (8.5-10.1) L 08/12/20 16:48 POC Ioniz Calcium Sunitha 1.16 mmol/l (1.12-1.32) 08/12/20 16:53 Phosphorus 2.7 mg/dl (2.5-4.9) 08/12/20 16:48 Magnesium 2.2 mg/dl (1.8-2.4) 08/12/20 16:48 Iron 281 mcg/dl (35-150) H 08/12/20 16:48 TIBC 318 mcg/dl (250-450) 08/12/20 16:48 Transferrin 232 mg/dl (200-360) 08/12/20 16:48 Ferritin 47.3 ng/ml (8-388) 08/12/20 16:48 Total Bilirubin 0.5 mg/dl (0.2-1) 08/12/20 16:48 Direct Bilirubin 0.1 mg/dl (0-0.2) 08/12/20 16:48 AST 18 U/L (15-37) 08/12/20 16:48 ALT 27 U/L (12-78) 08/12/20 16:48 Alkaline Phosphatase 45 U/L (45-117) 08/12/20 16:48 Total Creatine Kinase 88 U/L (26-192) 08/12/20 16:48 Troponin I 0.019 ng/ml (0-0.045) 08/12/20 16:48 Total Protein 5.9 gm/dl (6.4-8.2) L 08/12/20 16:48 Albumin 3.0 gm/dl (3.4-5.0) L 08/12/20 16:48 Globulin 2.9 gm/dl (2.5-4.0) 08/12/20 16:48 Albumin/Globulin Ratio 1.0 (0.9-2) 08/12/20 16:48 Lipase 138 U/L (73-393) 08/12/20 16:48 Urine Color Yellow 08/12/20 17:12 Urine Appearance Clear (Clear) 08/12/20 17:12 Urine pH 5.5 (4.5-7.5) 08/12/20 17:12 Ur Specific [place] 1.024 (1.000-1.030) 08/12/20 17:12 Urine Protein Negative (Negative) 08/12/20 17:12 Urine Glucose (UA) Negative (Negative) 08/12/20 17:12 Urine Ketones 1+ (Negative) H 08/12/20 17:12 Urine Blood Negative (Negative) 08/12/20 17:12 Urine Nitrite Negative (Negative) 08/12/20 17:12 Urine Bilirubin Negative (Negative) 08/12/20 17:12 Urine Urobilinogen Negative (Negative) 08/12/20 17:12 Ur Leukocyte Esterase Negative (Negative) 08/12/20 17:12 COVID-19 Eval Order Covid19 at [facility] 08/12/20 17:25 SARS-CoV-2 (PCR) NEGATIVE (Negative) 08/12/20 17:25 Blood Type O Positive 08/12/20 16:48 Antibody Screen NEGATIVE 08/12/20 16:48 Crossmatch See Detail 08/12/20 16:48 Impressions Chest X-Ray 08/12/20 16:44 XR chest 1V portable CLINICAL HISTORY: Chest Pain COMPARISON STUDY: No previous studies for comparison. FINDINGS: Lung volumes are normal. Lungs are clear. There is no pneumothorax or pleural effusion. Cardiac size is normal. Mediastinal contours are normal. There is no evidence for pulmonary edema. IMPRESSION: No acute cardiopulmonary findings. ACT 112: Negative or not required by law. Electronically signed by: Kendell Mello M.D. 08/12/2020 5:04 PM Abdomen/Pelvis CT 08/12/20 16:46 CT abd pelvis IV con only CLINICAL HISTORY: hypotension, syncope, melena COMPARISON STUDY: None. TECHNIQUE: A dose lowering technique was utilized adhering to the principles of ALARA. CT DOSE: 466.81 mGy.cm FINDINGS: Lower chest: Limited evaluation of lung bases shows no evidence of acute abnormalities.. Liver: The contrast-enhanced liver is normal in size, contour, and attenuation. There is no intrahepatic biliary ductal dilatation. The hepatic veins and portal veins are patent. Gallbladder: Unremarkable. Spleen: Normal in size and attenuation. Pancreas: Unremarkable. Adrenal glands: Unremarkable. Kidneys: There is symmetric renal cortical enhancement. The kidneys are normal in size without hydronephrosis. Pelvic viscera: Urinary bladder is decompressed which limits evaluation. Possible urinary catheter is seen. No uterus seen, possibly surgically absent. Bowel: Small hiatal hernia is seen. Stomach is filled with ingested material. Loops of bowel are nondilated. Appendix is not well seen. Minimal diverticulosis of sigmoid colon without evidence of diverticulitis. Peritoneum: There is no intraperitoneal free air or abdominal ascites. Adenopathy:: Multiple retroperitoneal and mesenteric lymph nodes are seen, measuring less than 1 cm in short axis and considered nonpathological by CT size criteria. Vasculature: Nondilated abdominal aorta is seen. Skeletal structures: Multilevel degenerative changes of the spine. Also degenerative changes of the right sacroiliac joint and pubis symphysis are seen. Linear density within anterior inferior sacral aspect of the right sacroiliac joint shows linear lucency which might represent fracture. IMPRESSION: 1. Nondilated loops of bowel. No significant inflammatory changes within the abdomen pelvis. Minimal diverticulosis of sigmoid colon without evidence of diverticulitis 2. Inflammatory changes surrounding the right sacroiliac joint with possible fracture detailed above. 3. Small hiatal hernia. 4. Other findings as detailed above. ACT 112: Positive. There are findings on this exam that require communication between the performing entity and the patient following Patient Test Result [place] Act [place] Act 112) guidelines. The above report was generated using voice recognition software. It may contain grammatical, syntax or spelling errors. Electronically signed by: Abigail Mosqueda DO 08/12/2020 6:11 PM Diagnostic Findings EKG as per my interpretation: Rate 115, sinus tachycardia, normal axis, no ischemia
--- NOTE | 2020-08-12 19:46 | Gastrointestinal Consultation ---
Date of Consultation August 12, 2020 Assessment & Plan (1) GI bleed: EGD today. IV PPI. IV Hydration. PRBC if Hgb falls to 7. One dose of IV Erythromycin 250 mg. ICU evaluation. History of Present Illness Reason for Consultation: GI bleed Requesting Physician: Pedro Dowling History of Present Illness 64 years old female patient with no medical comorbids presented to the ED with multiple syncopal episodes and melena, found to have hypotension and tachycardia with anemia and elevate BUN hence GI is consulted. Denies any abdominal pain, nausea or vomiting. Occasional use of NSAIDs. No Hx of fever or recent travel. No significant alcohol use or Hx of Liver disease. Allergies Allergy/AdvReac Type Severity Reaction Status Date / Time Penicillins Allergy Intermediate Hives Verified 08/12/20 17:22 Home Medications Medication Instructions Recorded Confirmed Type [id number] 1 tab PO Q6H PRN 08/12/20 08/12/20 History [Excedrin Extra Strength] cholecalciferol (vitamin D3) 25 mcg PO DAILY 08/12/20 08/12/20 History [Vitamin D3] multivitamin [Multiple Vitamins] 1 tab PO DAILY 08/12/20 08/12/20 History Patient History Medical History Anemia GI bleed Surgical History H/O: hysterectomy Social History Smoking Status: Never smoker Feels Safe at Home: Yes Review of Systems Constitutional: no fever, no chills, no fatigue and no weight loss Eyes: no eye pain and no worsening vision Ear, Nose, Mouth, Throat: no tinnitus, no dizziness, no nasal discharge and no epistaxis Respiratory: no cough, no dyspnea, no dyspnea on exertion and no wheezing Cardiovascular: no chest pain, no orthopnea, no palpitations and no edema Gastrointestinal: as per Subjective / HPI Genitourinary: no dysuria, no urinary frequency, no urinary incontinence and no hematuria Musculoskeletal: no stiffness and no myalgia Neurologic: no localized weakness, no paralysis, no tremor(s) and no headache(s) Endocrine: no polydipsia and no polyuria Hematologic / Lymphatic: no easy bleeding and no night sweats Physical Exam Constitutional: + well hydrated, cooperative and comfortable Eyes: PERRL, conjunctivae normal, anicteric sclerae ENMT: external ear and nose normal, oropharynx normal Neck: normal visual inspection and trachea midline Respiratory: normal respiratory effort, lungs clear to auscultation Auscultation: no wheezes Cardiovascular: RRR, no murmur, no edema Gastrointestinal (Abdomen): normal bowel sounds, soft, nontender, no hepatosplenomegaly Musculoskeletal: no cyanosis or clubbing, extremities motor strength 5/5 Skin: no rashes, warm and dry Neurologic: awake; no focal motor deficits Motor/Sensory: no tremor Results & Data ([facility]) Vital Signs (Past 12 Hours) Vital Signs Temp Pulse Resp BP Pulse Ox 08/12/20 19:30 111 H 16 116/70 98 08/12/20 19:20 113 H 15 89/67 L 99 08/12/20 19:10 112 H 19 97/69 L 99 08/12/20 19:02 111 H 17 97/73 L 98 08/12/20 18:36 105 H 26 H 132/77 99 08/12/20 18:20 108 H 17 115/87 100 08/12/20 18:15 106 H 15 114/79 100 08/12/20 18:11 111 H 20 105/64 100 08/12/20 18:09 35.8 C L 08/12/20 18:06 109 H 15 127/61 100 08/12/20 18:03 120 H 16 99/70 L 97 08/12/20 18:00 115 H 23 95 08/12/20 17:58 112 H 22 08/12/20 17:32 108 H 13 99 08/12/20 17:31 106 H 16 91/58 L 100 08/12/20 17:30 108 H 14 99 08/12/20 17:25 105 H 12 97/65 L 99 08/12/20 17:20 108 H 18 90/59 L 98 08/12/20 17:17 108 H 11 L 98 08/12/20 17:15 110 H 12 76/43 L 98 08/12/20 17:14 111 H 16 77/49 L 90 08/12/20 17:00 116 H 14 100 08/12/20 16:55 117 H 19 84/72 L 100 08/12/20 16:51 115 H 20 114/81 99 08/12/20 16:46 114 H 18 91/58 L 99 08/12/20 16:45 119 H 16 99 08/12/20 16:41 114 H 14 96 08/12/20 16:39 114 H 14 80/58 L 96 08/12/20 16:29 36.5 C 120 H 20 58/53 L 100 Laboratory Results Laboratory Results - last 24 hr 08/12/20 08/12/20 08/12/20 16:48 16:48 16:48 WBC 18.21 H RBC 3.06 L Hgb 9.5 L POC Hgb Hct 28.5 L POC Hct MCV 93.1 MCH 31.0 MCHC 33.3 RDW Std Deviation 46.3 RDW Coeff of Mario 13.6 Plt Count 355 MPV 11.0 H Immature Gran % (Auto) 0.7 Neut % (Auto) 84.8 Lymph % (Auto) 11.2 Horry % (Auto) 3.0 Eos % (Auto) 0.1 Baso % (Auto) 0.2 Reticulocyte % (Auto) 1.8 Neut # (Auto) 15.44 H Lymph # (Auto) 2.04 Horry # (Auto) 0.55 Eos # (Auto) 0.02 Baso # (Auto) 0.04 Reticulocyte # 0.05 Immature Gran # (Auto) 0.12 H PT 10.3 INR 1.0 APTT < 20.0 L PTT Ratio 0.8 POC Sodium Sodium POC Potassium Potassium POC Chloride Chloride Carbon Dioxide POC Total CO2 Anion Gap POC Anion Gap POC BUN BUN Creatinine POC Creatinine Est Cr Clr Drug Dosing Est GFR ( Amer) Est GFR (Non-Af Amer) BUN/Creatinine Ratio Glucose POC Glucose (other) Estimat Average Glucose Hemoglobin A1c Lactate Calcium POC Ioniz Calcium Sunitha Phosphorus Magnesium Iron TIBC Transferrin Ferritin Total Bilirubin Direct Bilirubin AST ALT Alkaline Phosphatase Total Creatine Kinase Troponin I Total Protein Albumin Globulin Albumin/Globulin Ratio Lipase Procalcitonin TSH Urine Color Urine Appearance Urine pH Ur Specific Stanton Urine Protein Urine Glucose (UA) Urine Ketones Urine Blood Urine Nitrite Urine Bilirubin Urine Urobilinogen Ur Leukocyte Esterase COVID-19 Eval Order SARS-CoV-2 (PCR) Blood Type O Positive Antibody Screen NEGATIVE Crossmatch See Detail 08/12/20 08/12/20 08/12/20 16:48 16:48 16:50 WBC RBC Hgb POC Hgb Hct POC Hct MCV MCH MCHC RDW Std Deviation RDW Coeff of Mario Plt Count MPV Immature Gran % (Auto) Neut % (Auto) Lymph % (Auto) Horry % (Auto) Eos % (Auto) Baso % (Auto) Reticulocyte % (Auto) Neut # (Auto) Lymph # (Auto) Horry # (Auto) Eos # (Auto) Baso # (Auto) Reticulocyte # Immature Gran # (Auto) PT INR APTT PTT Ratio POC Sodium Sodium 138 POC Potassium Potassium 4.6 POC Chloride Chloride 109 H Carbon Dioxide 19 L POC Total CO2 Anion Gap 10.0 POC Anion Gap POC BUN BUN 69 H Creatinine 0.79 POC Creatinine Est Cr Clr Drug Dosing 72.8 Est GFR ( Amer) 90.4 Est GFR (Non-Af Amer) 78.0 BUN/Creatinine Ratio 87.1 H Glucose 250 H POC Glucose (other) Estimat Average Glucose Pending Hemoglobin A1c Pending Lactate 4.2 H* Calcium 8.3 L POC Ioniz Calcium Sunitha Phosphorus 2.7 Magnesium 2.2 Iron 281 H TIBC 318 Transferrin 232 Ferritin 47.3 Total Bilirubin 0.5 Direct Bilirubin 0.1 AST 18 ALT 27 Alkaline Phosphatase 45 Total Creatine Kinase 88 Troponin I 0.019 Total Protein 5.9 L Albumin 3.0 L Globulin 2.9 Albumin/Globulin Ratio 1.0 Lipase 138 Procalcitonin TSH 1.570 Urine Color Urine Appearance Urine pH Ur Specific Stanton Urine Protein Urine Glucose (UA) Urine Ketones Urine Blood Urine Nitrite Urine Bilirubin Urine Urobilinogen Ur Leukocyte Esterase COVID-19 Eval Order SARS-CoV-2 (PCR) Blood Type Antibody Screen Crossmatch 08/12/20 08/12/20 08/12/20 16:50 16:53 17:12 WBC RBC Hgb POC Hgb 8.5 L Hct POC Hct 25 L MCV MCH MCHC RDW Std Deviation RDW Coeff of Mario Plt Count MPV Immature Gran % (Auto) Neut % (Auto) Lymph % (Auto) Horry % (Auto) Eos % (Auto) Baso % (Auto) Reticulocyte % (Auto) Neut # (Auto) Lymph # (Auto) Horry # (Auto) Eos # (Auto) Baso # (Auto) Reticulocyte # Immature Gran # (Auto) PT INR APTT PTT Ratio POC Sodium 137 Sodium POC Potassium 4.6 Potassium POC Chloride 106 Chloride Carbon Dioxide POC Total CO2 17 L Anion Gap POC Anion Gap 20.0 POC BUN 73 H BUN Creatinine POC Creatinine 0.9 Est Cr Clr Drug Dosing Est GFR ( Amer) Est GFR (Non-Af Amer) BUN/Creatinine Ratio Glucose POC Glucose (other) 232 H Estimat Average Glucose Hemoglobin A1c Lactate Calcium POC Ioniz Calcium Sunitha 1.16 Phosphorus Magnesium Iron TIBC Transferrin Ferritin Total Bilirubin Direct Bilirubin AST ALT Alkaline Phosphatase Total Creatine Kinase Troponin I Total Protein Albumin Globulin Albumin/Globulin Ratio Lipase Procalcitonin 0.15 TSH Urine Color Yellow Urine Appearance Clear Urine pH 5.5 Ur Specific Stanton 1.024 Urine Protein Negative Urine Glucose (UA) Negative Urine Ketones 1+ H Urine Blood Negative Urine Nitrite Negative Urine Bilirubin Negative Urine Urobilinogen Negative Ur Leukocyte Esterase Negative COVID-19 Eval Order SARS-CoV-2 (PCR) Blood Type Antibody Screen Crossmatch 08/12/20 08/12/20 08/12/20 17:25 17:25 19:06 WBC RBC Hgb POC Hgb Hct POC Hct MCV MCH MCHC RDW Std Deviation RDW Coeff of Mario Plt Count MPV Immature Gran % (Auto) Neut % (Auto) Lymph % (Auto) Horry % (Auto) Eos % (Auto) Baso % (Auto) Reticulocyte % (Auto) Neut # (Auto) Lymph # (Auto) Horry # (Auto) Eos # (Auto) Baso # (Auto) Reticulocyte # Immature Gran # (Auto) PT INR APTT PTT Ratio POC Sodium Sodium POC Potassium Potassium POC Chloride Chloride Carbon Dioxide POC Total CO2 Anion Gap POC Anion Gap POC BUN BUN Creatinine POC Creatinine Est Cr Clr Drug Dosing Est GFR ( Amer) Est GFR (Non-Af Amer) BUN/Creatinine Ratio Glucose POC Glucose (other) Estimat Average Glucose Hemoglobin A1c Lactate 2.5 H* Calcium POC Ioniz Calcium Sunitha Phosphorus Magnesium Iron TIBC Transferrin Ferritin Total Bilirubin Direct Bilirubin AST ALT Alkaline Phosphatase Total Creatine Kinase Troponin I Total Protein Albumin Globulin Albumin/Globulin Ratio Lipase Procalcitonin TSH Urine Color Urine Appearance Urine pH Ur Specific Stanton Urine Protein Urine Glucose (UA) Urine Ketones Urine Blood Urine Nitrite Urine Bilirubin Urine Urobilinogen Ur Leukocyte Esterase COVID-19 Eval Order Covid19 at [facility] SARS-CoV-2 (PCR) NEGATIVE Blood Type Antibody Screen Crossmatch
[2020-08-12 19:49] LABS: Thyroid Stimulating Hormone 1.57 uIu/ml (0.300-4.500)
[2020-08-12] MEDS ORDERED: ATROPINE SULFATE 0.1 MG/ML 10ML SYR IV PRN (20:04)
[2020-08-12] MEDS ORDERED: fentaNYL citrate 100 MCG/2 ML VIAL IV PRN (20:04)
[2020-08-12] MEDS ORDERED: LABETALOL HCL IV 5 MG/ML 20ML IV PRN (20:04)
[2020-08-12] MEDS ORDERED: ePHEDrine sulfate 50 MG/ML AMP IV PRN (20:04)
[2020-08-12] MEDS ORDERED: PHENYLEPHRINE 100MCG/ML 5ML SYR IV PRN (20:04)
[2020-08-12] MEDS ORDERED: ONDANSETRON INJ 2 MG/ML 2 ML VIAL IV PRN (20:04)
--- NOTE | 2020-08-12 20:08 | Anesthesiology Consultation ---
Date of Service August 12, 2020 Assessment & Plan (1) Encounter for pre-operative examination: Chart Review Chart Review: Acceptable Risk for Surgery (necessary surgery) and Patient NOT seen in Pre Admission Testing Consults Requested none History Surgery Operation Date: 08/12/20 20:30 Proposed Procedures p EGD Hemostasis - Brad Gustafson MD Height/Weight Height: 5 ft 5 in Weight: 79.1 kg Allergies Allergy/AdvReac Type Severity Reaction Status Date / Time Penicillins Allergy Intermediate Hives Verified 08/12/20 17:22 Medications Home Medications Medication Instructions Recorded Confirmed Last Taken [id number] 1 tab PO Q6H PRN 08/12/20 08/12/20 Unknown [Excedrin Extra Strength] cholecalciferol (vitamin D3) 25 mcg PO DAILY 08/12/20 08/12/20 08/12/20 [Vitamin D3] multivitamin [Multiple Vitamins] 1 tab PO DAILY 08/12/20 08/12/20 08/12/20 Active Medications Generic Name Dose Route Start Last Admin Trade Name Christianq PRN Reason Stop Dose Admin Pantoprazole Sodium 40 mg/ 100 mls @ 20 mls/hr 08/12/20 18:15 08/12/20 18:44 Dextrose IV 09/11/20 18:14 8 mg/hr Q5H BROOK 20 mls/hr Administration 8 MG/HR NPO Date Last Intake of Fluids: 08/12/20 Time Last Intake of Fluids: 15:30 Date Last Intake of Solids: 08/11/20 Past Medical History Medical History Anemia GI bleed Past Surgical History Surgical History H/O: hysterectomy Social History Smoking Status: Never smoker Physical Exam Vital Signs Last Vital Signs Temp 35.8 C L 08/12/20 18:09 Pulse 121 H 08/12/20 19:53 Resp 16 08/12/20 19:53 BP 100/62 08/12/20 19:53 Pulse Ox 98 08/12/20 19:53 Testing Laboratory Results 08/12/20 16:48 08/12/20 16:48 PT 10.3 Seconds (9.0-12.0) 08/12/20 16:48 INR 1.0 (0.9-1.1) 08/12/20 16:48 APTT < 20.0 Seconds (21.0-31.0) L 08/12/20 16:48 Urine Color Yellow 08/12/20 17:12 Urine Appearance Clear (Clear) 08/12/20 17:12 Urine pH 5.5 (4.5-7.5) 08/12/20 17:12 Ur Specific Arimo 1.024 (1.000-1.030) 08/12/20 17:12 Urine Protein Negative (Negative) 08/12/20 17:12 Urine Glucose (UA) Negative (Negative) 08/12/20 17:12 Urine Ketones 1+ (Negative) H 08/12/20 17:12 Urine Nitrite Negative (Negative) 08/12/20 17:12 Ur Leukocyte Esterase Negative (Negative) 08/12/20 17:12 Blood Type O Positive 08/12/20 16:48 Antibody Screen NEGATIVE 08/12/20 16:48 08/12/20 16:53 POC Glucose (other) 232 H Electrocardiogram Date: 08/12/20 Findings: + ST @ (116) Chest X-Ray Date: 08/12/20 [facility], [id number] XRay Report Patient: DOMINGO JEFFREY Date: 08/12/20MR#: [id number]: [address] [place] [address] RDAcct ID:[id number]: [facility] Zip: [place], [place] [address]Qug: 64Location: EDSex: FRoom/Bed:Att Phy:Diagnosis: CHILLS,SHAKES,DIARRHEA,PASSED OUTPri Phy: PCP,NOService Date: 08/12/20Fam P hy:Interpreting Phy: Kendell Mello MDAdmit Phy: Ordering Phy: Pedro Dowling M.D. cc: ~ XR chest 1V portable CLINICAL HISTORY: Chest Pain COMPARISON STUDY: No previous studies for comparison. FINDINGS: Lung volumes are normal. Lungs are clear. There is no pneumothorax or pleural effusion. Cardiac size is normal. Mediastinal contours are normal. There is no evidence for pulmonary edema. IMPRESSION: No acute cardiopulmonary findings. ACT 112: Negative or not required by law. Electronically signed by: Kendell Mello M.D. 08/12/2020 5:04 PM Dictated: 08/12/201702Transcribed: 08/12/201702 Other Testing CT abd pelvis IV con only CLINICAL HISTORY: hypotension, syncope, melena COMPARISON STUDY: None. TECHNIQUE: A dose lowering technique was utilized adhering to the principles of ALARA. CT DOSE: 466.81 mGy.cm FINDINGS: Lower chest: Limited evaluation of lung bases shows no evidence of acute abnormalities.. Liver: The contrast-enhanced liver is normal in size, contour, and attenuation. There is no intrahepatic biliary ductal dilatation. The hepatic veins and portal veins are patent. Gallbladder: Unremarkable. Spleen: Normal in size and attenuation. Pancreas: Unremarkable. Adrenal glands: Unremarkable. Kidneys: There is symmetric renal cortical enhancement. The kidneys are normal in size without hydronephrosis. Pelvic viscera: Urinary bladder is decompressed which limits evaluation. Poss ible urinary catheter is seen. No uterus seen, possibly surgically absent. Bowel: Small hiatal hernia is seen. Stomach is filled with ingested material. Loops of bowel are nondilated. Appendix is not well seen. Minimal diverticulosis of sigmoid colon without evidence of diverticulitis. Peritoneum: There is no intraperitoneal free air or abdominal ascites. Adenopathy:: Multiple retroperitoneal and mesenteric lymph nodes are seen, measuring less than 1 cm in short axis and considered nonpathological by CT size criteria. Vasculature: Nondilated abdominal aorta is seen. Skeletal structures: Multilevel degenerative changes of the spine. Also degenerative changes of the right sacroiliac joint and pubis symphysis are seen. Linear density within anterior inferior sacral aspect of the right sacroiliac joint shows linear lucency which might represent fracture. IMPRESSION: 1. Nondilated loops of bowel. No significant inflammatory changes within the abdomen pelvis. Minimal diverticulosis of sigmoid colon without evidence of diverticulitis 2. Inflammatory changes surrounding the right sacroiliac joint with possible fracture detailed above. 3. Small hiatal hernia. 4. Other findings as detailed above. ACT 112: Positive. There are findings on this exam that require communication between the performing entity and the patient following Patient Test Result [place] Act [place] Act 112) guidelines. The above report was generated using voice recognition software. It may contain grammatical, syntax or spelling errors. Electronically signed by: Abigail Mosqueda DO 08/12/2020 6:11 PM Dictated: 08/12/20 175Transcribed: 08/12/20 175
[2020-08-12] MEDS ORDERED: LIDOCAINE 2% 2 ML VIAL/AMP(20MG/ML) INFIL ONE (20:22)
[2020-08-12] MEDS ORDERED: PROPOFOL IV EMULSION 10 MG/ML 20 ML VIAL IV ONE ×2 (20:22→20:50)
--- NOTE | 2020-08-12 20:49 | Operative Report ---
Post Operative Report Pre & Post Diagnosis Operation Date: 08/12/20 20:30 <No data on this case meets the specified criteria> I identified the patient and participated in the time-out.: Yes Procedure Operation Date: 08/12/20 20:30 <No data on this case meets the specified criteria> Surgeon Brad Gustafson MD Philosophy Instructor None Estimated Blood Loss 0 Findings See Below (GEJ ulcer with visible vessel, treated with cautery and clips.) Specimens None Description of Procedure EGD I attest to the content of the Intraoperative Record and any orders documented therein. Any exceptions are noted below.
[2020-08-12] MEDS ORDERED: ACETAMINOPHEN 325 MG TAB PO PRN (21:06)
[2020-08-12] MEDS ORDERED: ICU PROTOCOL FOR HYPERGLYCEMIA PRN (21:06)
[2020-08-12] MEDS ORDERED: PROMETHAZINE HCL 12.5 MG in SODIUM CHLORIDE 0.9% 50 ML IV PRN (21:06)
[2020-08-12] MEDS ORDERED: ACETAMINOPHEN 1,000 MG/100 ML VIAL IV PRN (21:06)
[2020-08-12] MEDS ORDERED: LORazepam 0.25 MG/0.5 ML VIAL IV PRN (21:06)
[2020-08-12] MEDS ORDERED: MoRPHine SULFATE 2 MG/ML CARP IV PRN (21:06)
[2020-08-12] MEDS ORDERED: traMADol HCL 50 MG TABLET PO PRN (21:06)
--- NOTE | 2020-08-12 21:08 | Gastroenterology Progress Note ---
Date of Service August 12, 2020 Subjective EGD findings: - Esophageal ulcer with visible vessel. Injected Epi. Treated with bipolar cautery and clips were placed. - Small Hiatal Hernia. - Hematin (altered blood/bkytni-lpwbng-egys material) in the gastric body. - Normal duodenal bulb and second portion of the duodenum. Recommend: - Return patient to ICU for ongoing care. - NPO today then clear liquids tomorrow. - No aspirin, ibuprofen, naproxen, or other non-steroidal anti-inflammatory drugs. - Use a proton pump inhibitor IV daily for 2 days then PO BID for 2 months. - Repeat upper endoscopy in 2 months to check healing. - Follow an antireflux regimen. Results & Data ([facility]) Vital Signs (Past 12 Hours) Vital Signs Temp Pulse Resp BP Pulse Ox 08/12/20 19:53 121 H 16 100/62 98 08/12/20 19:40 116 H 22 107/70 97 08/12/20 19:30 111 H 16 116/70 98 08/12/20 19:20 113 H 15 89/67 L 99 08/12/20 19:10 112 H 19 97/69 L 99 08/12/20 19:02 111 H 17 97/73 L 98 08/12/20 18:36 105 H 26 H 132/77 99 08/12/20 18:20 108 H 17 115/87 100 08/12/20 18:15 106 H 15 114/79 100 08/12/20 18:11 111 H 20 105/64 100 08/12/20 18:09 35.8 C L 08/12/20 18:06 109 H 15 127/61 100 08/12/20 18:03 120 H 16 99/70 L 97 08/12/20 18:00 115 H 23 95 08/12/20 17:58 112 H 22 08/12/20 17:32 108 H 13 99 08/12/20 17:31 106 H 16 91/58 L 100 08/12/20 17:30 108 H 14 99 08/12/20 17:25 105 H 12 97/65 L 99 08/12/20 17:20 108 H 18 90/59 L 98 08/12/20 17:17 108 H 11 L 98 08/12/20 17:15 110 H 12 76/43 L 98 08/12/20 17:14 111 H 16 77/49 L 90 08/12/20 17:00 116 H 14 100 08/12/20 16:55 117 H 19 84/72 L 100 08/12/20 16:51 115 H 20 114/81 99 08/12/20 16:46 114 H 18 91/58 L 99 08/12/20 16:45 119 H 16 99 08/12/20 16:41 114 H 14 96 08/12/20 16:39 114 H 14 80/58 L 96 08/12/20 16:29 36.5 C 120 H 20 58/53 L 100
--- NOTE | 2020-08-12 21:08 | GI REPORT ---
Patient Name: Jayla Spence Procedure Date: 08/12/2020 8:26 PM Date of : 1955 Admit Type: Emergency Department Age: 64 Gender: Female Attending MD: Brad Gustafson MD Procedure: Upper GI endoscopy Providers: Brad Gustafson MD Referring MD: Pedro Dowling M.d. Indications: Melena Medicines: Propofol per Anesthesia Complications: No immediate complications. Estimated Blood Loss: Estimated blood loss: none. Procedure: Pre-Anesthesia Assessment: - Prior to the procedure, a History and Physical was performed, and patient medications, allergies and sensitivities were reviewed. The patient's tolerance of previous anesthesia was reviewed. - The risks and benefits of the procedure and the sedation options and risks were discussed with the patient. All questions were answered and informed consent was obtained. - Patient identification and proposed procedure were verified prior to the procedure by the physician and the nurse. The procedure was verified in the procedure room. - Pre-procedure physical examination revealed no contraindications to sedation. After obtaining informed consent, the endoscope was passed under direct vision. Throughout the procedure, the patient's blood pressure, pulse, and oxygen saturations were monitored continuously. The Scope was introduced through the mouth, and advanced to the second part of duodenum. The upper GI endoscopy was accomplished without difficulty. The patient tolerated the procedure well. Findings: A small hiatal hernia was present. One cratered and linear esophageal ulcer with stigmata of recent bleeding and a visible vessel was found in the lower third of the esophagus, DDx: MWT, Pill (NSAIDs) induced esophagitis. The lesion was 12 mm in largest dimension. Area was successfully injected with 4 mL of a 1:10,000 solution of epinephrine for hemostasis. Coagulation for hemostasis using bipolar probe was successful. For hemostasis, three hemostatic clips were successfully placed (MR conditional). There was no bleeding at the end of the procedure. Hematin (altered blood/fasdpu-ouqppg-scey material) was found in the gastric body. The duodenal bulb and second portion of the duodenum were normal. Impression: - Esophageal ulcer with visible vessel. Injected Epi. Treated with bipolar cautery and clips were placed. - Hematin (altered blood/clfonq-cjoley-wzka material) in the gastric body. - Normal duodenal bulb and second portion of the duodenum. - No specimens collected. Recommendation: - Return patient to ICU for ongoing care. - NPO today then clear liquids tomorrow. - No aspirin, ibuprofen, naproxen, or other non-steroidal anti-inflammatory drugs. - Use a proton pump inhibitor IV daily for 2 days then PO BID for 2 months. - Repeat upper endoscopy in 2 months to check healing. - Follow an antireflux regimen. Brad Gustafson MD 08/12/2020 9:07:30 PM This report has been signed electronically. Note Initiated On: 08/12/2020 8:26 PM Number of Addenda: 0 I attest to the content of the Intraoperative Record and orders documented therein, exceptions below {[id number]}
--- NOTE | 2020-08-12 21:20 | Anesthesiology Progress Note ---
Date of Service August 12, 2020 Anesthesia Post Procedure Vital Signs Vital Signs: Temp Pulse Resp BP Pulse Ox 08/12/20 21:10 108 H 19 99 08/12/20 21:09 109 H 22 123/79 99 08/12/20 21:05 110 H 28 H 99 08/12/20 21:04 111 H 29 H 96/59 L 100 08/12/20 21:01 114 H 22 92 08/12/20 20:59 99 H 21 125/73 100 08/12/20 20:56 96 08/12/20 19:53 121 H 16 100/62 98 08/12/20 19:40 116 H 22 107/70 97 08/12/20 19:30 111 H 16 116/70 98 08/12/20 19:20 113 H 15 89/67 L 99 08/12/20 19:10 112 H 19 97/69 L 99 08/12/20 19:02 111 H 17 97/73 L 98 08/12/20 18:36 105 H 26 H 132/77 99 08/12/20 18:20 108 H 17 115/87 100 08/12/20 18:15 106 H 15 114/79 100 08/12/20 18:11 111 H 20 105/64 100 08/12/20 18:09 35.8 C L 08/12/20 18:06 109 H 15 127/61 100 08/12/20 18:03 120 H 16 99/70 L 97 08/12/20 18:00 115 H 23 95 08/12/20 17:58 112 H 22 08/12/20 17:32 108 H 13 99 08/12/20 17:31 106 H 16 91/58 L 100 08/12/20 17:30 108 H 14 99 08/12/20 17:25 105 H 12 97/65 L 99 08/12/20 17:20 108 H 18 90/59 L 98 08/12/20 17:17 108 H 11 L 98 08/12/20 17:15 110 H 12 76/43 L 98 08/12/20 17:14 111 H 16 77/49 L 90 08/12/20 17:00 116 H 14 100 08/12/20 16:55 117 H 19 84/72 L 100 08/12/20 16:51 115 H 20 114/81 99 08/12/20 16:46 114 H 18 91/58 L 99 08/12/20 16:45 119 H 16 99 08/12/20 16:41 114 H 14 96 08/12/20 16:39 114 H 14 80/58 L 96 08/12/20 16:29 36.5 C 120 H 20 58/53 L 100 Transfer of Care Handoff Completed per policy Notes Mental Status: alert / awake / arousable Patient Amnestic to Procedure: Yes Nausea / Vomiting: adequately controlled Pain: adequately controlled Airway Patency, RR, SpO2: stable & adequate BP & HR: stable & adequate Hydration State: stable & adequate Anesthetic Complications: no major complications apparent and Pt Satisfied with anesthetic care
[2020-08-12] MEDS: LACTATED RINGER'S 1,000 ML IV SCH (21:37)
--- NOTE | 2020-08-12 21:52 | Critical Care Consultation ---
Date of Consultation August 12, 2020 Assessment & Plan (1) Acute blood loss anemia: (2) GI bleed: Impression: 64-year-old female presents to the ICU following upper GI bleed with acute blood loss anemia, now s/p EGD where she was found to have bleeding esophageal ulcer and underwent injection with epi and cautery clips placed. Neuro - [facility] ICU: Negative Cardiac - Currently hemodynamically stable, mild tachycardia likely due to acute blood loss. Continuous monitoring on telemetry Respiratory - No history of pulmonary disease, denies history of smoking Currently maintaining oxygen saturation on room air, lungs clear to auscultation Continuous monitoring pulse GI - Esophageal ulcer bleedingnow status post EGD with injected epi and cautery clips placed -Monitor in ICU overnight -Per GI recommendationsn.p.o. for now with clear liquids in the morning -No aspirin, ibuprofen, naproxen, or other NSAIDs -IV PPI x2 days, then p.o. twice daily for 2 months -See management of anemia below RENAL/LYTES - Creatinine within normal limits, no electrolyte abnormalities Monitor BMPs and replete as indicated Lactic acidosisimproving, trend - Strict I's and O's ENDO - No history of diabetes or thyroid disease ICU hyperglycemic protocol HEME - Acute blood loss anemiahemoglobin 9 in ED, patient is currently hemodynamically stable and has not received blood product at this point -Trend H&H, transfuse as necessary, typed and screened -Coags within normal limits -Monitor ID - Patient received erythromycin initially in the ED. We will continue with ciprofloxacin empirically for now LINES/IV ACCESS - Peripheral IVs DVT PROPHYLAXIS - SCDs, hold anticoagulation following GI bleeding Thank you for allowing us to participate in the care of this patient. Please refer to my attending physician's documentation for any further recommendations. (3) Lactic acidosis: (4) Esophageal ulcer with bleeding: History of Present Illness Attending Physician: Jocelyn Mancilla, History of Present Illness 64-year-old female without significant past medical history presented to the emergency department with complaints of recurrent syncopal episodes and black tarry stools that started earlier today with abdominal pain. She was found to be hypotensive and anemic with hemoglobin 90 in the emergency department. Patient reported frequent NSAID use. Blood pressure improved with fluid resuscitation. GI was consulted and patient underwent EGD which is found to have esophageal ulcer with a visible vessel. This was injected with epi and bipolar cautery clips were placed. Patient was also noted to have a small hiatal hernia. Patient now transferred to the ICU for monitoring following EGD. On arrival to the ICU the patient is alert and oriented x3. She appears comfortable on room air and hemodynamically stable. She currently denies headache, dizziness, nausea or vomiting, chest pain or palpitations, shortness of breath, recent fevers or sore throat, swelling in hands or feet. She does report some mild abdominal discomfort and confirms reports of syncope and melena in stools earlier today. She did state that she had an episode where she passed out earlier today but did not sustain any trauma or hit her head. Repeat H&H and lactate pending. We will continue further management in ICU for now. Allergies Allergy/AdvReac Type Severity Reaction Status Date / Time Penicillins Allergy Intermediate Hives Verified 08/12/20 17:22 Home Medications Medication Instructions Recorded Confirmed Type [id number] 1 tab PO Q6H PRN 08/12/20 08/12/20 History [Excedrin Extra Strength] cholecalciferol (vitamin D3) 25 mcg PO DAILY 08/12/20 08/12/20 History [Vitamin D3] multivitamin [Multiple Vitamins] 1 tab PO DAILY 08/12/20 08/12/20 History Patient History Medical History Anemia GI bleed Surgical History H/O: hysterectomy Social History Smoking Status: Former smoker Hx Alcohol Use: No Hx Substance Use: No Preferred Language: French Beliefs That Will Affect Care: None Current Living Situation: Spouse Other Information That Helps Us Care for You: No Feels Safe at Home: Yes Safety Concerns: Feels Safe At This Time Assistive Devices: None Review of Systems Review of Systems: All systems reviewed & are unremarkable except as noted in HPI & below Physical Exam Constitutional: cooperative and comfortable Eyes: PERRL, conjunctivae normal, anicteric sclerae ENMT: external ear and nose normal, oropharynx normal Neck: trachea midline, no thyromegaly Respiratory: normal respiratory effort, lungs clear to auscultation Cardiovascular: RRR, no murmur, no edema Rate/Rhythm: + tachycardic Heart Sounds: normal S1 and normal S2 Vessels: no JVD Extremities: normal capillary refill; no edema Gastrointestinal (Abdomen): Abdomen is soft, nondistended. Bowel sounds normal. Generalized tenderness to light palpation. Skin: no rashes, warm and dry Neurologic: PERRL, EOMI, accommodation nl, no face palsy, no dysarthria Psychiatric: A+Ox3, euthymic affect Results & Data Results & Data ([facility]) Vital Signs (Past 12 Hours) Vital Signs Temp Pulse Pulse Resp BP BP Pulse Ox 08/12/20 21:35 37.1 C 08/12/20 21:29 108 H 22 104/60 97 08/12/20 21:25 108 H 22 95 08/12/20 21:24 108 H 25 H 113/66 96 08/12/20 21:20 109 H 24 94 08/12/20 21:19 36.8 C 108 H 108 H 24 133/76 133/76 96 08/12/20 21:15 108 H 22 98 08/12/20 21:14 108 H 22 116/63 100 08/12/20 21:10 36.8 C 108 H 19 99 08/12/20 21:09 109 H 22 123/79 99 08/12/20 21:05 110 H 28 H 99 08/12/20 21:04 111 H 29 H 96/59 L 100 08/12/20 21:01 114 H 22 92 08/12/20 21:00 37.4 C 08/12/20 20:59 99 H 21 125/73 100 08/12/20 20:56 96 08/12/20 19:53 121 H 16 100/62 98 08/12/20 19:40 116 H 22 107/70 97 08/12/20 19:30 111 H 16 116/70 98 08/12/20 19:20 113 H 15 89/67 L 99 08/12/20 19:10 112 H 19 97/69 L 99 08/12/20 19:02 111 H 17 97/73 L 98 08/12/20 18:36 105 H 26 H 132/77 99 08/12/20 18:20 108 H 17 115/87 100 08/12/20 18:15 106 H 15 114/79 100 08/12/20 18:11 111 H 20 105/64 100 08/12/20 18:09 35.8 C L 08/12/20 18:06 109 H 15 127/61 100 08/12/20 18:03 120 H 16 99/70 L 97 08/12/20 18:00 115 H 23 95 08/12/20 17:58 112 H 22 08/12/20 17:32 108 H 13 99 08/12/20 17:31 106 H 16 91/58 L 100 08/12/20 17:30 108 H 14 99 08/12/20 17:25 105 H 12 97/65 L 99 08/12/20 17:20 108 H 18 90/59 L 98 08/12/20 17:17 108 H 11 L 98 08/12/20 17:15 110 H 12 76/43 L 98 08/12/20 17:14 111 H 16 77/49 L 90 08/12/20 17:00 116 H 14 100 08/12/20 16:55 117 H 19 84/72 L 100 08/12/20 16:51 115 H 20 114/81 99 08/12/20 16:46 114 H 18 91/58 L 99 08/12/20 16:45 119 H 16 99 08/12/20 16:41 114 H 14 96 08/12/20 16:39 114 H 14 80/58 L 96 08/12/20 16:29 36.5 C 120 H 20 58/53 L 100 Coding Level of Care Code 16531 Inpt Consult Level 5 Diagnoses Acute blood loss anemia D62 GI bleed K92.2 Lactic acidosis E87.2 Esophageal ulcer with bleeding K22.11
[2020-08-12] MEDS: CIPROFLOXACIN / D5W 400 MG/200 ML BAG IV SCH (22:18)
[2020-08-12 22:28] LABS: Hematocrit (blood only) 20.4 % (37-47)
[2020-08-13 01:53] LABS: Hematocrit (blood only) 24.2 % (37-47); Hemoglobin 8.2 g/dL (12.0-16.0)
[2020-08-13] MEDS: PANTOprazole 40 MG in DEXTROSE 5% 100 ML IV SCH ×5 (03:48→23:14)
[2020-08-13 04:21] LABS: Basophils # (auto) 0.02 K/uL (0-0.2); Basophils % (auto) 0.2 %; Eosinophils # (auto) 0.03 K/uL (0-0.5); Eosinophils % (auto) 0.2 %; Hematocrit (blood only) 23.9 % (37-47); Hemoglobin 8.3 g/dL (12.0-16.0); Immature Granulocytes # (auto) 0.04 K/uL (0.00-0.02); Immature Granulocytes % (auto) 0.3 %; Lymphocytes % (auto) 24.2 %; Mean Corpuscular Hemoglobin 30.5 pg (25-34); Mean Corpuscular Hgb Conc 34.7 g/dL (32-36); Mean Corpuscular Volume 87.9 fL (80-100); Mean Platelet Volume 10.4 fL (7.4-10.4); Monocytes # (auto) 1.27 K/uL (0.11-0.59); Monocytes % (auto) 9.6 %; Neutrophils # (auto) 8.68 K/uL (1.4-6.5); Neutrophils % (auto) 65.5 %; Platelet Count 208 K/uL (130-400); RDW Coefficient of Variation 14.2 % (11.5-14.5); RDW Standard Deviation 45.2 fL (36.4-46.3); Red Blood Count 2.72 M/uL (4.2-5.4); White Blood Count 13.24 K/uL (4.8-10.8)
[2020-08-13 04:44] LABS: Calcium 7.4 mg/dl (8.5-10.1); Creatinine Clr Calc Pharmacy 112.7 ml/min; Est GFR (African American) 116.9 ml/min; Est GFR (Non-African American) 100.9 ml/min; Potassium 3.9 mmol/L (3.5-5.1)
[2020-08-13] MEDS: CIPROFLOXACIN / D5W 400 MG/200 ML BAG IV SCH (07:46)
[2020-08-13] MEDS: MULTIVITAMIN TAB PO SCH (07:46)
[2020-08-13] MEDS: LACTATED RINGER'S 1,000 ML IV SCH (07:46)
[2020-08-13 09:04] LABS: Basophils # (auto) 0.02 K/uL (0-0.2); Basophils % (auto) 0.2 %; Eosinophils # (auto) 0.04 K/uL (0-0.5); Eosinophils % (auto) 0.3 %; Hematocrit (blood only) 23.2 % (37-47); Immature Granulocytes # (auto) 0.04 K/uL (0.00-0.02); Immature Granulocytes % (auto) 0.3 %; Lymphocytes # (auto) 2.45 K/uL (1.2-3.4); Mean Corpuscular Hemoglobin 30.3 pg (25-34); Mean Corpuscular Hgb Conc 34.5 g/dL (32-36); Mean Corpuscular Volume 87.9 fL (80-100); Mean Platelet Volume 10.3 fL (7.4-10.4); Monocytes # (auto) 1.02 K/uL (0.11-0.59); Monocytes % (auto) 8.8 %; Neutrophils # (auto) 8.08 K/uL (1.4-6.5); Neutrophils % (auto) 69.4 %; Platelet Count 206 K/uL (130-400); RDW Coefficient of Variation 14.5 % (11.5-14.5); RDW Standard Deviation 46.8 fL (36.4-46.3); Red Blood Count 2.64 M/uL (4.2-5.4); White Blood Count 11.65 K/uL (4.8-10.8)
--- NOTE | 2020-08-13 11:20 | Gastroenterology Progress Note ---
Date of Service August 13, 2020 Assessment & Plan Admission and Anticipated Discharge Date Admission Date: August 12, 2020 Subjective Patient was seen and examined today, feels better, denies any nausea or vomiting, had black colored BM early this AM but no blood. On exam vitals with no tachycardia. Abdomen is soft. Labs reviewed. BUN trending down. H/H stable after PRBC transfusion. Recommend: Start Clear liquids today. Continue IV PPI drip till tomorrow. Repeat EGD as OP in 2 months. Recall GI if any issues or evidence of rebleeding. Results & Data ([facility]) Vital Signs (Past 12 Hours) Vital Signs Temp Pulse Resp BP Pulse Ox 08/13/20 10:14 91 H 21 108/64 99 08/13/20 10:00 89 19 97 08/13/20 09:44 90 18 109/61 99 08/13/20 09:30 90 17 96 08/13/20 09:14 96 H 20 115/65 98 08/13/20 09:00 91 H 17 95 08/13/20 08:44 91 H 12 104/63 95 08/13/20 08:30 99 H 22 98 08/13/20 08:14 93 H 18 102/68 08/13/20 08:00 36.9 C 101 H 12 99 08/13/20 07:44 98 H 13 119/70 95 08/13/20 07:30 104 H 17 95 08/13/20 07:14 97 H 17 113/64 97 08/13/20 07:00 95 H 18 95 08/13/20 06:45 106 H 17 123/56 L 99 08/13/20 06:44 102 H 18 87/56 L 98 08/13/20 06:30 96 H 21 95 08/13/20 06:15 101 H 17 98 08/13/20 06:14 99 H 15 95/56 L 98 08/13/20 05:44 96 H 16 105/72 97 08/13/20 05:16 104 H 15 100/71 98 08/13/20 04:44 104 H 19 104/68 96 08/13/20 04:14 106 H 21 116/69 96 08/13/20 03:51 37.0 C 08/13/20 03:44 102 H 15 117/70 100 08/13/20 03:14 105 H 21 133/73 95 08/13/20 02:44 102 H 20 108/62 95 08/13/20 02:14 101 H 22 100/58 L 97 08/13/20 01:44 102 H 16 103/64 96 08/13/20 01:14 105 H 21 109/74 96 08/13/20 00:45 105 H 20 98/67 L 95 08/13/20 00:29 37.1 C 112 H 16 115/78 99 08/13/20 00:14 101 H 19 113/70 97 08/13/20 00:08 101 H 19 115/78 96 08/13/20 00:07 37.1 C 112 H 16 115/78 99 08/12/20 23:59 105 H 20 108/66 98 08/12/20 23:44 37.3 C 108 H 20 106/59 L 96 08/12/20 23:29 111 H 15 97/62 L 98 08/12/20 23:19 113 H
--- NOTE | 2020-08-13 13:04 | Electrocardiogram Report ---
Test Reason : Blood Pressure : / mmHG Vent. Rate : 116 BPM Atrial Rate : 116 BPM P-R Int : 140 ms QRS Dur : 076 ms QT Int : 346 ms P-R-T Axes : 076 066 069 degrees QTc Int : 480 ms Poor data quality, interpretation may be adversely affected Sinus tachycardia Otherwise normal ECG When compared with ECG of 04-FEB-2005 17:44, Vent. rate has increased BY 53 BPM Confirmed by Tae Strauss ([id number]) on 08/13/2020 1:04:09 PM Referred By: REFERRED SELF Confirmed By:Gilbert Strauss
--- NOTE | 2020-08-13 13:07 | Electrocardiogram Report ---
Test Reason : Blood Pressure : / mmHG Vent. Rate : 095 BPM Atrial Rate : 095 BPM P-R Int : 150 ms QRS Dur : 070 ms QT Int : 390 ms P-R-T Axes : 060 036 078 degrees QTc Int : 490 ms Normal sinus rhythm When compared with ECG of 12-AUG-2020 16:48, (unconfirmed) T wave amplitude has decreased in Anterior leads Confirmed by Tae Strauss ([id number]) on 08/13/2020 1:07:02 PM Referred By: REFERRED SELF Confirmed By:Gilbert Strauss
--- NOTE | 2020-08-13 13:09 | Critical Care Progress Note ---
Date of Service August 13, 2020 Assessment & Plan (1) Acute blood loss anemia: (2) GI bleed: Impression: 64-year-old female presents to the ICU following upper GI bleed with acute blood loss anemia, now s/p EGD where she was found to have bleeding esophageal ulcer and underwent injection with epi and cautery clips placed. Neuro - [facility] ICU: Negative Cardiac - No present issues Respiratory - No history of pulmonary disease, denies history of smoking Currently maintaining oxygen saturation on room air, lungs clear to auscultation Continuous monitoring pulse GI - Esophageal ulcer bleedingnow status post EGD with injected epi and cautery clips placed -Per GI recommendationsn.p.o. for now with clear liquids in the morning -No aspirin, ibuprofen, naproxen, or other NSAIDs -IV PPI x2 days, then p.o. twice daily for 2 months -See management of anemia below RENAL/LYTES - Creatinine within normal limits, no electrolyte abnormalities Monitor BMPs and replete as indicated - Strict I's and O's ENDO - No history of diabetes or thyroid disease ICU hyperglycemic protocol HEME - Acute blood loss anemiastatus post 1 unit of packed RBCs. Follow-up hemoglobin stable. Recommend rechecking hemoglobin tonight. ID - No indication for further antibiotics LINES/IV ACCESS - Peripheral IVs DVT PROPHYLAXIS - SCDs, hold anticoagulation following GI bleeding Stable for transfer to the floor. Thank you for allowing us to participate in the care of this patient. Please refer to my attending physician's documentation for any further recommendations. (3) Lactic acidosis: (4) Esophageal ulcer with bleeding: Admission and Anticipated Discharge Date Admission Date: August 12, 2020 Subjective Patient seen and examined this morning. She is doing very well. Denies any further melena. No dizziness today. No chest pain. Mild abdominal discomfort. Review of Systems Review of Systems: All systems reviewed & are unremarkable except as noted in HPI & below Physical Exam Constitutional: cooperative and comfortable Eyes: PERRL, conjunctivae normal, anicteric sclerae ENMT: external ear and nose normal, oropharynx normal Neck: trachea midline, no thyromegaly Respiratory: normal respiratory effort, lungs clear to auscultation Cardiovascular: RRR, no murmur, no edema Heart Sounds: normal S1 and normal S2 Vessels: no JVD Extremities: normal capillary refill; no edema Gastrointestinal (Abdomen): Abdomen is soft, nondistended. Bowel sounds normal. Generalized tenderness to light palpation. Skin: no rashes, warm and dry Neurologic: PERRL, EOMI, accommodation nl, no face palsy, no dysarthria Psychiatric: A+Ox3, euthymic affect Results & Data Results & Data ([facility]) Vital Signs (Past 12 Hours) Vital Signs Temp Pulse Resp BP Pulse Ox 08/13/20 12:00 98.6 F 90 25 H 98 08/13/20 11:57 98 H 24 121/64 100 08/13/20 11:44 94 H 17 107/64 97 08/13/20 11:30 97 H 12 98 08/13/20 11:27 91 H 08/13/20 11:14 91 H 19 101/61 98 08/13/20 11:00 90 18 94 08/13/20 10:44 90 17 107/61 96 08/13/20 10:30 89 17 95 08/13/20 10:15 92 H 20 99 08/13/20 10:14 91 H 21 108/64 99 08/13/20 10:00 89 19 97 08/13/20 09:44 90 18 109/61 99 08/13/20 09:30 90 17 96 08/13/20 09:14 96 H 20 115/65 98 08/13/20 09:00 91 H 17 95 08/13/20 08:44 91 H 12 104/63 95 08/13/20 08:30 99 H 22 98 08/13/20 08:14 93 H 18 102/68 08/13/20 08:00 98.4 F 101 H 12 99 08/13/20 07:44 98 H 13 119/70 95 08/13/20 07:30 104 H 17 95 08/13/20 07:14 97 H 17 113/64 97 08/13/20 07:00 95 H 18 95 08/13/20 06:45 106 H 17 123/56 L 99 08/13/20 06:44 102 H 18 87/56 L 98 08/13/20 06:30 96 H 21 95 08/13/20 06:15 101 H 17 98 08/13/20 06:14 99 H 15 95/56 L 98 08/13/20 05:44 96 H 16 105/72 97 08/13/20 05:16 104 H 15 100/71 98 08/13/20 04:44 104 H 19 104/68 96 08/13/20 04:14 106 H 21 116/69 96 08/13/20 03:51 98.6 F 08/13/20 03:44 102 H 15 117/70 100 08/13/20 03:14 105 H 21 133/73 95 08/13/20 02:44 102 H 20 108/62 95 08/13/20 02:14 101 H 22 100/58 L 97 08/13/20 01:44 102 H 16 103/64 96 08/13/20 01:14 105 H 21 109/74 96 Vital signs, labs and imaging personally reviewed Coding Level of Care Code 07548 Subseq Hosp Care Lvl 2 Diagnoses Acute blood loss anemia D62 GI bleed K92.2 Lactic acidosis E87.2 Esophageal ulcer with bleeding K22.11
[2020-08-13] MEDS ORDERED: TROLAMINE SALICYLATE 10% CRM 255 APPLN/85 GM TUBE EXT PRN (15:53)
--- NOTE | 2020-08-13 15:53 | Hospitalist Progress Note ---
Date of Service August 13, 2020 Assessment & Plan (1) Esophageal ulcer with bleeding: Doing well status post EGD where she was found to have bleeding esophageal ulcer and underwent injection with epi and cautery with clips placed. She remains on a PPI drip and no NSAIDs are recommended. Clear liquids are being tolerated. Continue PPI drip per GI recommendations until tomorrow and advance diet tomorrow. Trend H&H in a.m. (2) Hypotension: Secondary to acute GI bleeding-resolved status post source control. (3) Acute blood loss anemia: She is status post 1 unit of blood and feeling well clinically. H emoglobin is improved to 8/23.2 from 7/20.4 prior to transfusion and EGD. Appears stable hemodynamically. Trend CBC in a.m. (4) Lactic acidosis: Resolved (5) DVT prophylaxis: Chemoprophylaxis is contraindicated in setting of acute GI bleeding/SCDs/ambulation Full code Disposition-discharge to home in 1 to 2 days. Jocelyn Mancilla DO [facility] Hospitalist Admission and Anticipated Discharge Date Admission Date: August 12, 2020 Subjective 64-year-old female presented with melena status post endoscopy overnight with evidence of linear esophageal ulcer with stigmata of recent bleeding and visible vessel in the lower third of the esophagus. Epinephrine and coagulation with probe was performed 3 hemostatic clips were placed and there was no bleeding at the end of procedure. She recovered in the ICU overnight on a Protonix drip and is doing well this morning. She is now tolerating clear liquids without issue. She has a Tobias catheter in place which will be removed. She denies abdominal pain lightheadedness. She does continue to have some blackish appearing stool. Review of Systems Review of Systems: All systems reviewed & are unremarkable except as noted in Subjective Physical Exam Physical Exam: CONSTITUTIONAL: WNWD, vitals as above, generally well- appearing EYES: normal conjunctivae, no scleral icterus ENT: external ear and nose normal, oropharynx clear, MMM RESPIRATORY: clear to auscultation bilaterally, no crackles, rales or wheezes, normal respiratory effort CARDIOVASCULAR: regular rate and rhythm, S1 and 2 heard without murmurs, gallops or rubs, no JVD, no peripheral edema GASTROINTESTINAL: soft, nontender, nondistended. MUSCULOSKELETAL: strength 5/5 throughout, head is normocephalic and atraumatic SKIN: warm and dry NEUROLOGIC: CN 2-12 grossly intact, no sensory deficit, normal cognition, normal speech, no tremor. No gross focal deficits. PSYCHIATRIC: alert cooperative and oriented to person, place and time. Results & Data Results & Data ([facility]) Vital Signs (Past 12 Hours) Vital Signs Temp Pulse Resp BP Pulse Ox 08/13/20 15:15 91 H 08/13/20 13:30 91 H 24 98 08/13/20 13:27 89 17 104/65 100 08/13/20 13:00 87 16 97 08/13/20 12:57 86 20 108/60 97 08/13/20 12:30 93 H 24 99 08/13/20 12:28 88 20 120/67 98 08/13/20 12:00 37.0 C 90 25 H 98 08/13/20 11:57 98 H 24 121/64 100 08/13/20 11:44 94 H 17 107/64 97 08/13/20 11:30 97 H 12 98 08/13/20 11:27 91 H 08/13/20 11:14 91 H 19 101/61 98 08/13/20 11:00 90 18 94 08/13/20 10:44 90 17 107/61 96 08/13/20 10:30 89 17 95 08/13/20 10:15 92 H 20 99 08/13/20 10:14 91 H 21 108/64 99 08/13/20 10:00 89 19 97 08/13/20 09:44 90 18 109/61 99 08/13/20 09:30 90 17 96 08/13/20 09:14 96 H 20 115/65 98 08/13/20 09:00 91 H 17 95 08/13/20 08:44 91 H 12 104/63 95 08/13/20 08:30 99 H 22 98 08/13/20 08:14 93 H 18 102/68 08/13/20 08:00 36.9 C 101 H 12 99 08/13/20 07:44 98 H 13 119/70 95 08/13/20 07:30 104 H 17 95 08/13/20 07:14 97 H 17 113/64 97 08/13/20 07:00 95 H 18 95 08/13/20 06:45 106 H 17 123/56 L 99 08/13/20 06:44 102 H 18 87/56 L 98 08/13/20 06:30 96 H 21 95 08/13/20 06:15 101 H 17 98 08/13/20 06:14 99 H 15 95/56 L 98 08/13/20 05:44 96 H 16 105/72 97 08/13/20 05:16 104 H 15 100/71 98 08/13/20 04:44 104 H 19 104/68 96 08/13/20 04:14 106 H 21 116/69 96 08/13/20 03:51 37.0 C Laboratory Results Short CBC 08/12/20 08/12/20 08/13/20 Range/Units 16:48 22:04 01:41 WBC 18.21 H (4.8-10.8) K/uL Hgb 9.5 L 7.0 L 8.2 L (12.0-16.0) g/dL Hct 28.5 L 20.4 L* 24.2 L (37-47) % Plt Count 355 (130-400) K/uL 08/13/20 08/13/20 Range/Units 04:05 08:48 WBC 13.24 H 11.65 H (4.8-10.8) K/uL Hgb 8.3 L 8.0 L (12.0-16.0) g/dL Hct 23.9 L 23.2 L (37-47) % Plt Count 208 206 (130-400) K/uL BMP 08/12/20 08/13/20 16:48 04:05 Sodium 138 143 Potassium 4.6 3.9 D Chloride 109 H 115 H Carbon Dioxide 19 L 22 BUN 69 H 31 H D Creatinine 0.79 0.50 L Glucose 250 H 108 H Calcium 8.3 L 7.4 L Cardiac Enzymes 08/12/20 Range/Units 16:48 Total Creatine Kinase 88 (26-192) U/L Troponin I 0.019 (0-0.045) ng/ml Liver Function 08/12/20 Range/Units 16:48 Total Bilirubin 0.5 (0.2-1) mg/dl Direct Bilirubin 0.1 (0-0.2) mg/dl AST 18 (15-37) U/L ALT 27 (12-78) U/L Alkaline Phosphatase 45 (45-117) U/L Albumin 3.0 L (3.4-5.0) gm/dl Urine 08/12/20 Range/Units 17:12 Urine Color Yellow Urine Appearance Clear (Clear) Urine pH 5.5 (4.5-7.5) Ur Specific [place] 1.024 (1.000-1.030) Urine Protein Negative (Negative) Urine Glucose (UA) Negative (Negative) Medications Administered Current Inpatient Medications Acetaminophen (Acetaminophen 325 Mg Tab) 650 mg PO Q6H PRN PRN Reason: Fever/pain Stop: 09/11/20 21:05 Pantoprazole Sodium 40 mg/ (Dextrose) 100 mls @ 20 mls/hr IV Q5H BROOK Stop: 09/11/20 18:14 Last Admin: 08/13/20 13:21 Dose: 8 mg/hr, 20 mls/hr Documented by: Acetaminophen (Ofirmev) 1,000 mg in 100 mls @ 400 mls/hr IV Q8H PRN PRN Reason: fever/pain Stop: 08/15/20 21:05 Promethazine HCl 12.5 mg/ (Sodium Chloride) 50.5 mls @ 202 mls/hr IV Q6H PRN PRN Reason: Nausea And Vomiting Stop: 09/11/20 21:05 Lorazepam (Ativan) 0.25 mg in 0.5 mls @ 0.5 mls/min IV Q4H PRN PRN Reason: Anxiety Stop: 09/11/20 21:05 Morphine Sulfate (Morphine Sulfate 2 Mg/Ml Carp) 2 mg IV Q3H PRN PRN Reason: Pain Stop: 08/26/20 21:05 Multivitamins (Multivitamin Tab) 1 tab PO DAILY BROOK Stop: 09/12/20 08:59 Last Admin: 08/13/20 07:46 Dose: Not Given Documented by: Tramadol HCl (Tramadol Hcl 50 Mg Tablet) 25 - 50 mg PO Q4H PRN PRN Reason: Pain Stop: 09/11/20 21:05
[2020-08-13 18:35] LABS: Basophils # (auto) 0.02 K/uL (0-0.2); Basophils % (auto) 0.2 %; Eosinophils # (auto) 0.13 K/uL (0-0.5); Eosinophils % (auto) 1.5 %; Hematocrit (blood only) 22.1 % (37-47); Hemoglobin 7.3 g/dL (12.0-16.0); Immature Granulocytes # (auto) 0.02 K/uL (0.00-0.02); Immature Granulocytes % (auto) 0.2 %; Lymphocytes # (auto) 2.03 K/uL (1.2-3.4); Mean Corpuscular Hemoglobin 30.2 pg (25-34); Mean Corpuscular Volume 91.3 fL (80-100); Mean Platelet Volume 10.4 fL (7.4-10.4); Monocytes # (auto) 0.58 K/uL (0.11-0.59); Monocytes % (auto) 6.9 %; Neutrophils # (auto) 5.68 K/uL (1.4-6.5); Neutrophils % (auto) 67.2 %; Platelet Count 189 K/uL (130-400); RDW Coefficient of Variation 14.7 % (11.5-14.5); RDW Standard Deviation 48.8 fL (36.4-46.3); Red Blood Count 2.42 M/uL (4.2-5.4); White Blood Count 8.46 K/uL (4.8-10.8)
[2020-08-13 19:01] LABS: RBC Morphology Unremarkable
[2020-08-13 23:25] LABS: Hematocrit (blood only) 21.3 % (37-47); Hemoglobin 7.3 g/dL (12.0-16.0)
[2020-08-14] MEDS ORDERED: SODIUM CHLORIDE 0.9% 500 ML IV ONE (00:07)
[2020-08-14] MEDS: PANTOprazole 40 MG in DEXTROSE 5% 100 ML IV SCH ×2 (03:57→12:40)
[2020-08-14 06:46] LABS: Estimated Average Glucose 126 mg/dl
[2020-08-14 08:04] LABS: Hematocrit (blood only) 21.1 % (37-47); Hemoglobin 7.2 g/dL (12.0-16.0); Mean Corpuscular Hemoglobin 30.5 pg (25-34); Mean Corpuscular Hgb Conc 34.1 g/dL (32-36); Mean Corpuscular Volume 89.4 fL (80-100); Mean Platelet Volume 10.5 fL (7.4-10.4); Platelet Count 177 K/uL (130-400); RDW Coefficient of Variation 14.4 % (11.5-14.5); RDW Standard Deviation 47.3 fL (36.4-46.3); Red Blood Count 2.36 M/uL (4.2-5.4); White Blood Count 7.17 K/uL (4.8-10.8)
[2020-08-14] MEDS ORDERED: SODIUM CHLORIDE 0.9% 250 ML IV PRN (08:29)
[2020-08-14] MEDS ORDERED: ACETAMINOPHEN 325 MG TAB PO SCH (08:30)
[2020-08-14] MEDS ORDERED: diphenhydrAMINE Capsule 25 MG CAP PO SCH (08:30)
[2020-08-14] MEDS: MULTIVITAMIN TAB PO SCH (09:20)
[2020-08-14 14:13] LABS: Hematocrit (blood only) 25.8 % (37-47); Hemoglobin 8.6 g/dL (12.0-16.0)
--- NOTE | 2020-08-14 14:58 | Discharge Summary ---
Date of Service August 14, 2020 Admission HPI Per Admitting Provider History obtained from patient and records. Medical history significant for diverticulosis, colonic polyps, osteoarthritis, past tobacco abuse. Patient woke up this morning not feeling well. Recurrent syncopal episodes without headache. Melanotic diarrhea symptoms with achy central abdominal pain. No emesis. No fever, no chills. No prior episodes. No unusual weight loss. Daily Excedrin intake for joint aches. Patient brought to the ER for evaluation. SBP 60s upon arrival at the ER. IV PPI administered for UGI B. 1 unit packed RBC ordered by ER provider for transfusion. Medical History as above 2015 colonoscopy showed hyperplastic polyps, diverticulosis Surgical History : Cervical cryocautery, knee surgery, oophorectomy/salpingectomy for ectopic , hysterectomy Family History : Lymphoma, lung cancer, DM, heart disease; no GI cancer Personal/Social history : Past tobacco abuse, no EtOH intake, dental hygienist Admission Exam Per Admitting Provider GENERAL: Comfortable, pleasant, obese, slightly anxious, no respiratory distress SKIN: Pallor, warm HEENT: Pale palpebral conjunctivae, no ptosis, dry buccal mucosa NECK : Supple, short neck, no tenderness CHEST : CTA, no tenderness HEART : Tachycardic, no obvious murmurs ABDOMEN: Some distention, central abdominal tenderness EXTREMITIES : Minimal LE swelling, no LE tenderness, no other conspicuous deformities noted NEUROLOGIC : Coherent, no facial asymmetry, no other gross focality Principal Diagnosis Esophageal ulcer with bleeding status post injection with epinephrine and cautery with clips placed Hypotension secondary to acute GI bleeding-resolved Acute blood loss anemia Discharge Exam CONSTITUTIONAL: WNWD, vitals as above, generally well-appearing EYES: normal conjunctivae, no scleral icterus ENT: external ear and nose normal, oropharynx clear, MMM RESPIRATORY: clear to auscultation bilaterally, no crackles, rales or wheezes, normal respiratory effort CARDIOVASCULAR: regular rate and rhythm, S1 and 2 heard without murmurs, gallops or rubs, no JVD, no peripheral edema GASTROINTESTINAL: soft, nontender, nondistended. MUSCULOSKELETAL: strength 5/5 throughout, head is normocephalic and atraumatic SKIN: warm and dry NEUROLOGIC: CN 2-12 grossly intact, no sensory deficit, normal cognition, normal speech, no tremor. No gross focal deficits. PSYCHIATRIC: alert cooperative and oriented to person, place and time Discharge Data Allergies Allergy/AdvReac Type Severity Reaction Status Date / Time Penicillins Allergy Intermediate Hives Verified 08/12/20 17:22 Consultations 08/12/20 19:12 Consult Gastroenterology Stat ED Decision to Admit Stat 08/12/20 21:06 Consult Entertainer & Comic Routine Procedures Performed Operation Date: 08/12/20 20:30 Actual Procedures p Esophagogastroduodenoscopy - Brad Gustafson MD Ordered Studies Laboratory Results WBC 7.17 K/uL (4.8-10.8) 08/14/20 06:56 RBC 2.36 M/uL (4.2-5.4) L 08/14/20 06:56 Hgb 8.6 g/dL (12.0-16.0) L 08/14/20 13:47 POC Hgb 8.5 g/dl (12.0-16.0) L 08/12/20 16:53 Hct 25.8 % (37-47) L 08/14/20 13:47 POC Hct 25 % (37-47) L 08/12/20 16:53 MCV 89.4 fL (80-100) 08/14/20 06:56 MCH 30.5 pg (25-34) 08/14/20 06:56 MCHC 34.1 g/dL (32-36) 08/14/20 06:56 RDW Std Deviation 47.3 fL (36.4-46.3) H 08/14/20 06:56 RDW Coeff of Mario 14.4 % (11.5-14.5) 08/14/20 06:56 Plt Count 177 K/uL (130-400) 08/14/20 06:56 MPV 10.5 fL (7.4-10.4) H 08/14/20 06:56 Immature Gran % (Auto) 0.2 % 08/13/20 18:12 Neut % (Auto) 67.2 % 08/13/20 18:12 Lymph % (Auto) 24.0 % 08/13/20 18:12 [place] % (Auto) 6.9 % 08/13/20 18:12 Eos % (Auto) 1.5 % 08/13/20 18:12 Baso % (Auto) 0.2 % 08/13/20 18:12 Reticulocyte % (Auto) 1.8 % (0.5-2.0) 08/12/20 16:48 Neut # (Auto) 5.68 K/uL (1.4-6.5) 08/13/20 18:12 Lymph # (Auto) 2.03 K/uL (1.2-3.4) 08/13/20 18:12 [place]asper # (Auto) 0.58 K/uL (0.11-0.59) 08/13/20 18:12 Eos # (Auto) 0.13 K/uL (0-0.5) 08/13/20 18:12 Baso # (Auto) 0.02 K/uL (0-0.2) 08/13/20 18:12 Reticulocyte # 0.05 10^6/uL (0.02-0.10) 08/12/20 16:48 Immature Gran # (Auto) 0.02 K/uL (0.00-0.02) 08/13/20 18:12 RBC Morphology Unremarkable 08/13/20 18:12 PT 10.3 Seconds (9.0-12.0) 08/12/20 16:48 INR 1.0 (0.9-1.1) 08/12/20 16:48 APTT < 20.0 Seconds (21.0-31.0) L 08/12/20 16:48 PTT Ratio 0.8 08/12/20 16:48 POC Sodium 137 mmol/L (135-144) 08/12/20 16:53 Sodium 143 mmol/L (136-145) 08/13/20 04:05 POC Potassium 4.6 mmol/L (3.3-5.0) 08/12/20 16:53 Potassium 3.9 mmol/L (3.5-5.1) D 08/13/20 04:05 POC Chloride 106 mmol/L (101-112) 08/12/20 16:53 Chloride 115 mmol/L (98-107) H 08/13/20 04:05 Carbon Dioxide 22 mmol/L (21-32) 08/13/20 04:05 POC Total CO2 17 mmol/L (24-31) L 08/12/20 16:53 Anion Gap 6.0 (3-11) 08/13/20 04:05 POC Anion Gap 20.0 mmol/L (16-25) 08/12/20 16:53 POC BUN 73 mg/dl (7-18) H 08/12/20 16:53 BUN 31 mg/dl (7-18) H D 08/13/20 04:05 Creatinine 0.50 mg/dl (0.6-1.2) L 08/13/20 04:05 POC Creatinine 0.9 mg/dl (0.6-1.3) 08/12/20 16:53 Est Cr Clr Drug Dosing 112.7 ml/min 08/13/20 04:05 Est GFR ( Amer) 116.9 ml/min 08/13/20 04:05 Est GFR (Non-Af Amer) 100.9 ml/min 08/13/20 04:05 BUN/Creatinine Ratio 62.0 (10-20) H 08/13/20 04:05 Glucose 108 mg/dl (70-99) H 08/13/20 04:05 POC Glucose 110 mg/dl (70-99) H 08/14/20 11:17 POC Glucose (other) 232 mg/dl (70-99) H 08/12/20 16:53 Estimat Average Glucose 126 mg/dl 08/12/20 16:48 Hemoglobin A1c 6.0 % (4.5-5.6) H 08/12/20 16:48 Lactate 1.7 mmol/L (0.4-2.0) 08/12/20 22:04 Calcium 7.4 mg/dl (8.5-10.1) L 08/13/20 04:05 POC Ioniz Calcium Sunitha 1.16 mmol/l (1.12-1.32) 08/12/20 16:53 Phosphorus 2.7 mg/dl (2.5-4.9) 08/12/20 16:48 Magnesium 2.2 mg/dl (1.8-2.4) 08/12/20 16:48 Iron 281 mcg/dl (35-150) H 08/12/20 16:48 TIBC 318 mcg/dl (250-450) 08/12/20 16:48 Transferrin 232 mg/dl (200-360) 08/12/20 16:48 Ferritin 47.3 ng/ml (8-388) 08/12/20 16:48 Total Bilirubin 0.5 mg/dl (0.2-1) 08/12/20 16:48 Direct Bilirubin 0.1 mg/dl (0-0.2) 08/12/20 16:48 AST 18 U/L (15-37) 08/12/20 16:48 ALT 27 U/L (12-78) 08/12/20 16:48 Alkaline Phosphatase 45 U/L (45-117) 08/12/20 16:48 Total Creatine Kinase 88 U/L (26-192) 08/12/20 16:48 Troponin I 0.019 ng/ml (0-0.045) 08/12/20 16:48 Total Protein 5.9 gm/dl (6.4-8.2) L 08/12/20 16:48 Albumin 3.0 gm/dl (3.4-5.0) L 08/12/20 16:48 Globulin 2.9 gm/dl (2.5-4.0) 08/12/20 16:48 Albumin/Globulin Ratio 1.0 (0.9-2) 08/12/20 16:48 Lipase 138 U/L (73-393) 08/12/20 16:48 Procalcitonin 0.15 ng/ml (0-0.5) 08/12/20 16:50 TSH 1.570 uIu/ml (0.300-4.500) 08/12/20 16:48 Urine Color Yellow 08/12/20 17:12 Urine Appearance Clear (Clear) 08/12/20 17:12 Urine pH 5.5 (4.5-7.5) 08/12/20 17:12 Ur Specific [place] 1.024 (1.000-1.030) 08/12/20 17:12 Urine Protein Negative (Negative) 08/12/20 17:12 Urine Glucose (UA) Negative (Negative) 08/12/20 17:12 Urine Ketones 1+ (Negative) H 08/12/20 17:12 Urine Blood Negative (Negative) 08/12/20 17:12 Urine Nitrite Negative (Negative) 08/12/20 17:12 Urine Bilirubin Negative (Negative) 08/12/20 17:12 Urine Urobilinogen Negative (Negative) 08/12/20 17:12 Ur Leukocyte Esterase Negative (Negative) 08/12/20 17:12 Nasal Screen MRSA (PCR) Negative (Negative) 08/12/20 21:05 COVID-19 Eval Order Covid19 at [facility] 08/12/20 17:25 SARS-CoV-2 (PCR) NEGATIVE (Negative) 08/12/20 17:25 Blood Type O Positive 08/12/20 16:48 Blood Type Recheck O Positive 08/12/20 19:27 Antibody Screen NEGATIVE 08/12/20 16:48 Crossmatch See Detail 08/12/20 16:48 Impressions Chest X-Ray 08/12/20 16:44 XR chest 1V portable CLINICAL HISTORY: Chest Pain COMPARISON STUDY: No previous studies for comparison. FINDINGS: Lung volumes are normal. Lungs are clear. There is no pneumothorax or pleural effusion. Cardiac size is normal. Mediastinal contours are normal. There is no evidence for pulmonary edema. IMPRESSION: No acute cardiopulmonary findings. ACT 112: Negative or not required by law. Electronically signed by: Kendell Mello M.D. 08/12/2020 5:04 PM Abdomen/Pelvis CT 08/12/20 16:46 CT abd pelvis IV con only CLINICAL HISTORY: hypotension, syncope, melena COMPARISON STUDY: None. TECHNIQUE: A dose lowering technique was utilized adhering to the principles of ALARA. CT DOSE: 466.81 mGy.cm FINDINGS: Lower chest: Limited evaluation of lung bases shows no evidence of acute abnormalities.. Liver: The contrast-enhanced liver is normal in size, contour, and attenuation. There is no intrahepatic biliary ductal dilatation. The hepatic veins and portal veins are patent. Gallbladder: Unremarkable. Spleen: Normal in size and attenuation. Pancreas: Unremarkable. Adrenal glands: Unremarkable. Kidneys: There is symmetric renal cortical enhancement. The kidneys are normal in size without hydronephrosis. Pelvic viscera: Urinary bladder is decompressed which limits evaluation. Possible urinary catheter is seen. No uterus seen, possibly surgically absent. Bowel: Small hiatal hernia is seen. Stomach is filled with ingested material. Loops of bowel are nondilated. Appendix is not well seen. Minimal diverticulosis of sigmoid colon without evidence of diverticulitis. Peritoneum: There is no intraperitoneal free air or abdominal ascites. Adenopathy:: Multiple retroperitoneal and mesenteric lymph nodes are seen, measuring less than 1 cm in short axis and considered nonpathological by CT size criteria. Vasculature: Nondilated abdominal aorta is seen. Skeletal structures: Multilevel degenerative changes of the spine. Also degenerative changes of the right sacroiliac joint and pubis symphysis are seen. Linear density within anterior inferior sacral aspect of the right sacroiliac joint shows linear lucency which might represent fracture. IMPRESSION: 1. Nondilated loops of bowel. No significant inflammatory changes within the abdomen pelvis. Minimal diverticulosis of sigmoid colon without evidence of diverticulitis 2. Inflammatory changes surrounding the right sacroiliac joint with possible fracture detailed above. 3. Small hiatal hernia. 4. Other findings as detailed above. ACT 112: Positive. There are findings on this exam that require communication between the performing entity and the patient following Patient Test Result [place] Act [place] Act 112) guidelines. The above report was generated using voice recognition software. It may contain grammatical, syntax or spelling errors. Electronically signed by: Abigail Mosqueda DO 08/12/2020 6:11 PM Hospital Course (1) Esophageal ulcer with bleeding: Doing well status post EGD where she was found to have bleeding esophageal ulcer and underwent injection with epi and cautery with clips placed. She remained on a protonix infusion overnight and no NSAIDs are recommended. Clear liquids are being tolerated and she was advanced to solid food and tolerating this prior to discharge. H/H was stable post-operatively. She was asymptomatic, and although initially reported some persistent melena post-procedure, this cleared prior to discharge. (2) Hypotension: Secondary to acute GI bleeding-resolved status post source control. (3) Acute blood loss anemia: In response to an H&H 7 and 20.4. She improved the following day to 8/23.2 but continue to fall that evening. The morning of 08/14 she was 7.2/21.1 and 1 additional unit of blood was given to her prior to discharge. Posttransfusion hemoglobin was 8.6 and hematocrit was 25.8. She was feeling well and was stable for discharge. Follow-up CBC per primary care. (4) Lactic acidosis: Resolved (5) DVT prophylaxis: Chemoprophylaxis is contraindicated in setting of acute GI bl eeding/SCDs/ambulation Full code Disposition-discharge to home DO [facility] Hospitalist Total Time Total Time Spent Total Time Spent (In Minutes): 60 Total Time Includes: Examination of the Patient, Discharge Planning, Medication Reconciliation and Communication With Other Providers Discharge Plan Discharge Items Patient Disposition: Home - Self-Care Reason For Visit: HYPOTENSION Discharge Diagnosis: Esophageal ulcer with bleeding status post injection with epinephrine and cautery with clips placed Hypotension secondary to acute GI bleeding-resolved Acute blood loss anemia Condition on Discharge: Good Activity: Resume your previous activity Non-emergency contact: Primary Care Provider Call non-emergency contact if: you have any medication questions, your symptoms worsen and your pain is not controlled Follow-up/Referrals: Saskia Hanley PA-C [Primary Care Provider] - (Date & Time 08/21/2020 11:00 AM Provider Giuliano Hill III, MD Department [facility] ) Diet: Regular Addtl Attending Provider Instructions: Mrs. Spence, Martín were found to have a bleeding ulcer in your esophagus. You underwent injection with epinephrine and cautery with clips placed. He remained on a Protonix drip and tolerated clear liquids with advancement to solid food prior to discharge. Continuation of Protonix 40 mg twice daily until follow-up with GI as recommended. Please follow-up with [facility] gastroenterology in 2 months for repeat upper endoscopy. It is recommended that you follow-up with your primary care provider after this hospital stay to ensure you are doing well after returning home. Outpatient referrals may be placed at this time if needed. A repeat complete blood count is also recommended to ensure your anemia is resolving after blood loss. This may be drawn in the next 2 to 4 weeks or as instructed by your primary care provider. Please avoid all NSAIDs (nonsteroidal anti-inflammatory drugs) such as Motrin, ibuprofen, Aleve, naproxen, Celebrex, aspirin as these may cause bleeding and worsening of your esophageal ulcer. It was a pleasure taking care of you! Please call if you have any questions or problems. You can reach a [facility] hospitalist on duty at [facility] 24 hours a day by calling [phone]. Take care of yourself. Jocelyn Mancilla, [facility] Hospitalist Pending Studies at Discharge: No Stand-Alone Forms: My [facility] Medications and DC Order Prescriptions: New pantoprazole [Protonix] 40 mg tablet,delayed release (DR/EC) 40 mg PO BID Qty: 60 RF: 0 Continued multivitamin [Multiple Vitamins] Tablet 1 tab PO DAILY RF: 0 cholecalciferol (vitamin D3) [Vitamin D3] 25 mcg (1,000 unit) Tablet 25 mcg PO DAILY RF: 0 Discontinued Excedrin Extra Strength 250-250-65 mg Tablet 1 tab PO Q6H PRN (Reason: Pain) RF: 0 Discharge Orders: Discharge Order (Routine); Ordered 08/14/20 Ordered By: Jocelyn Cao/Other Patient Handouts: Prediabetes, 5 Steps for Eating Healthier, A1C Admission Data Admit Date/Time: 08/12/20 19:53 Attending Provider: Jocelyn Mancilla Admit Provider: Thierno Dia Primary Care Provider: Saskia Hanley Other Providers: Brad Gustafson ; Thierno Dia ; Jerry Adams Other Interventions: Discharge Summary Assessment (RN) Last Done: 08/14/20 15:05
[2020-08-14 15:11] VITALS: BP 95/62; TEMP 97.9; O2SAT 96
[2020-08-14 15:35] VITALS: PULSE 92
== END 2020-08-14 15:46 | disposition home or self-care (01) | DRG 381 ==
LOC: ED 16:27 → OR 19:58 → 1E 19:59 → 2N 08-13 14:32